=== PATIENT | male | born 1940 | race Hispanic/Latino ===

== ENCOUNTER 2017-10-10 16:33 | Observation (INO) | payer MEDICARE, OTHER ==
[~2017-10-10] VITALS: Ht 167.6 cm; Wt 135.2 kg
[~2017-10-10 16:33] MED LIST: ASPIR 8181 MG PO; CRESTOR10 MG PO; HYDROCHLOROTHIA25 MG PO; LISINOPRIL10 MG PO; METOPROLOL TART25 MG PO; POTASSIUM CHLO20 ME1 PO
--- OUTSIDE RECORDS SUMMARY | 2017-10-10 16:35 | XMS REPORT | Clinical Summary ---
Author Author [facility] Address Unknown Phone Unavailable Care Team Providers Care Plastics Fabrication Supervisor Name Role Phone Erick Bazzi MD PCP Allergies Not on File Current Medications Not on file Active Problems Problem Noted Date Malignant neoplasm of prostate 11/24/2016 Encounters Date Type Specialty Care Team Description 06/12/2017 Orders Only Radiation Oncology Asya Rader PA-C Malignant neoplasm of prostate (Primary Dx) 06/11/2017 [facility] Radiation Oncology David Bosch MD Encounter 04/27/2017 Hospital Radiation Oncology David Bosch MD Encounter 04/16/2017 Orders Only Radiation Oncology Asya Rader PA-C Malignant neoplasm of prostate (Primary Dx) 03/27/2017 [facility] Radiation Oncology David Bosch MD - Encounter 03/28/2017 02/24/2017 Hospital Radiation Oncology David Bosch MD Encounter 02/19/2017 [facility] Radiation Oncology David Bosch MD Encounter 12/29/2016 [facility] Radiology David Bosch MD Malignant neoplasm of Encounter prostate 12/29/2016 Hospital Radiology David Bosch MD Encounter 12/29/2016 Hospital Radiology David Bosch MD Malignant neoplasm of Encounter prostate 12/26/2016 Transcribe Access David Bosch MD Malignant neoplasm of Orders prostate (Primary Dx) 12/25/2016 [facility] Radiation Oncology David Bosch MD Encounter 12/25/2016 Orders Only Radiation Oncology Maru Dinero RN 12/19/2016 Telephone UrologMontana Banks MD after 10/09/2016 Social History Tobacco Use Types Packs/Day Years Used Date Never Assessed Sex Assigned at Date Recorded Not on file Last Filed Vital Signs Not on file Plan of Treatment Date Type Specialty Care Team Description 10/31/2017 Office Visit Gastroenterology Horace To MD [address] [address] Health Maintenance Due Date Last Done Comments ZOSTER VACCINE 2002 PNEUMOCOCCAL 2007 POLYSACCHARIDE VACCINE AGE 65 AND OVER PNEUMOCOCCAL-13 2007 INFLUENZA VACCINE 03/27/2017 Results * CBC with platelet and differential (03/01/2017 2:15 PM) Component Value Ref Range WBC 11.12 (H) 4.50 - 11.00 k/uL RBC 4.13 (L) 4.40 - 6.00 m/uL HGB 12.7 (L) 14.0 - 18.0 g/dL HCT 40.8 (L) 41.0 - 51.0 % MCV 98.8 82.0 - 100.0 fL MCH 30.8 27.0 - 34.0 pg MCHC 31.1 31.0 - 37.0 g/dL RDW - SD 48.0 37.0 - 55.0 fL MPV 9.0 8.8 - 13.2 fL Platelet count 195 150 - 400 k/uL Nucleated RBC 0.00 /100 WBC Neutrophils 73.9 (H) 39.0 - 69.0 % Lymphocytes 15.7 (L) 25.0 - 45.0 % Monocytes 7.3 0.0 - 10.0 % Eosinophils 2.4 0.0 - 5.0 % Basophils 0.3 0.0 - 1.0 % Immature granulocytes 0.4Comment: "Immature granulocytes" 0.0 - 1.0 % (promyelocytes, myelocytes, metamyelocytes) Specimen Performing Laboratory [facility] [place] DEPARTMENT OF PATHOLOGY AND GENOMIC MEDICINE [address] [place] [id number] * Prostate specific antigen (03/01/2017 2:15 PM) Component Value Ref Range PSA 3.1 0.0 - 4.0 ng/mL Comment: The ALBERT 8000 PSA immunoassay was used. Results obtained with different assay methods or kits should not be used interchangeably and may be different. Specimen Performing Laboratory Plasma specimen [facility] [place] DEPARTMENT OF PATHOLOGY AND GENOMIC MEDICINE [address] [place] [id number] * NM Bone Scan Whole Body (12/29/2016 1:39 PM) Specimen Performing Laboratory [address] [address] Narrative PROCEDURE: NM BONE SCAN WHOLE BODY INDICATION: MALIGNANT NEOPLASM OF PROSTATE Order diagnosis - Malignant neoplasm of prostate COMPARISON: No prior bone scans TECHNIQUE: Approximately three hours after the intravenous administration of 25 mCi of Tc-99m labeled MDP, routine whole body planar bone scanning was performed in the anterior and posterior projections. FINDINGS: Tracer uptake pattern throughout the spine is mildly heterogeneous most consistent with degenerative arthropathy. Additional degenerative uptake is noted in the joints of the upper and lower extremities. No suspicious osteoblastic foci are clearly identified. IMPRESSION: 1.No definite scintigraphic evidence of osteoblastic metastases. 2.Degenerative changes as described above. [facility] [id number] Procedure Note [facility], Radiology Results Incoming - 12/29/2016 3:45 PM CDT PROCEDURE: NM BONE SCAN WHOLE BODY INDICATION: MALIGNANT NEOPLASM OF PROSTATE Order diagnosis - Malignant neoplasm of prostate COMPARISON: No prior bone scans TECHNIQUE: Approximately three hours after the intravenous administration of 25 mCi of Tc-99m labeled MDP, routine whole body planar bone scanning was performed in the anterior and posterior projections. FINDINGS: Tracer uptake pattern throughout the spine is mildly heterogeneous most consistent with degenerative arthropathy. Additional degenerative uptake is noted in the joints of the upper and lower extremities. No suspicious osteoblastic foci are clearly identified. IMPRESSION: 1.No definite scintigraphic evidence of osteoblastic metastases. 2.Degenerative changes as described above. [facility] [id number] * CT Abdomen Pelvis Wo Contrast (12/29/2016 11:33 AM) Specimen Performing Laboratory [place] [id number] [place] [address] Narrative EXAMINATION:CT ABDOMEN PELVIS WO CONTRAST CLINICAL HISTORY:MALIGNANT NEOPLASM OF PROSTATE Order diagnosis - Malignant neoplasm of prostate TECHNIQUE: Multiple axial images of the abdomen and pelvis were obtained without intravenous administration of iodinated contrast. Sagittal and coronal computerized reformatted images were also obtained. The lack of intravenous contrast reduces the sensitivity of detecting solid organ disease.CT imaging was performed with iterative reconstruction technique and/or automated exposure control to reduce radiation dose. COMPARISON:None. FINDINGS: Abdomen: There is mild cardiomegaly and coronary artery calcification. Lung bases are unremarkable. The liver, pancreas, spleen, left adrenal gland are normal in appearance. A right adrenal mass is 2.2 cm. It is compatible with an adenoma. Patient is status post cholecystectomy. The appendix is not seen. The left kidney is unremarkable. Hypodensity emanating from the posterior right kidney is probably a cyst but is not optimally evaluated without contrast. Measures 3.7 x 3.3 cm. Pelvis: Prostatic calcifications are seen. Right inguinal hernia greater than left and tiny fat only are seen. No enlarged pelvic lymph node is identified. Small bilateral pelvic lymph nodes are seen. Prostate gland enlargement and calcification are noted. IMPRESSION: No definite evidence of metastasis. Small bilateral pelvic lymph nodes are normal by size criteria, but involvement of these nodes by tumor cannot be entirely excluded. No enlarged pelvic lymph node is seen.. Follow-up can be performed. [facility] [id number] Procedure Note [facility], Radiology Results Incoming - 12/29/2016 11:44 AM CDT EXAMINATION: CT ABDOMEN PELVIS WO CONTRAST CLINICAL HISTORY: MALIGNANT NEOPLASM OF PROSTATE Order diagnosis - Malignant neoplasm of prostate TECHNIQUE: Multiple axial images of the abdomen and pelvis were obtained without intravenous administration of iodinated contrast. Sagittal and coronal computerized reformatted images were also obtained. The lack of intravenous contrast reduces the sensitivity of detecting solid organ disease.CT imaging was performed with iterative reconstruction technique and/or automated exposure control to reduce radiation dose. COMPARISON: None. FINDINGS: Abdomen: There is mild cardiomegaly and coronary artery calcification. Lung bases are unremarkable. The liver, pancreas, spleen, left adrenal gland are normal in appearance. A right adrenal mass is 2.2 cm. It is compatible with an adenoma. Patient is status post cholecystectomy. The appendix is not seen. The left kidney is unremarkable. Hypodensity emanating from the posterior right kidney is probably a cyst but is not optimally evaluated without contrast. Measures 3.7 x 3.3 cm. Pelvis: Prostatic calcifications are seen. Right inguinal hernia greater than left and tiny fat only are seen. No enlarged pelvic lymph node is identified. Small bilateral pelvic lymph nodes are seen. Prostate gland enlargement and calcification are noted. IMPRESSION: No definite evidence of metastasis. Small bilateral pelvic lymph nodes are normal by size criteria, but involvement of these nodes by tumor cannot be entirely excluded. No enlarged pelvic lymph node is seen.. Follow-up can be performed. [facility] [id number] after 10/09/2016 Insurance Payer Benefit Subscriber ID Type Phone Address Plan / Group MEDICARE MEDICARE xxxxxxxxxx Medicare [place], [place] PART A AND B [employer] PPO xxxxxxxxxx PPO OPEN CHOICE
[2017-10-10] MEDS ORDERED: ASPIRIN 81 MG CHEW TAB PO ONE (16:45)
[2017-10-10] MEDS ORDERED: SODIUM CHLORIDE 0.9% 1000ML 1,000 ML ONE (17:24)
[2017-10-10 17:42] LABS: BASOPHILS % 0.3 % (0.0-1.0); EOSINOPHILS # (AUTO) 0.6 (0.0-0.4); EOSINOPHILS % 6.2 % (0.0-6.0); HEMATOCRIT 38.2 % (38.2-49.6); LYMPHOCYTES # (AUTO) 1.5 (1.0-3.2); LYMPHOCYTES % 14.9 % (18.0-39.1); MEAN CORPUSCULAR HEMOGLOBIN 30.7 pg (28-32); MEAN CORPUSCULAR HGB CONC 31.4 g/dL (31-35); MEAN CORPUSCULAR VOLUME 97.7 fL (81-99); MONOCYTES # (AUTO) 0.9 (0.2-0.8); MONOCYTES % 8.8 % (4.4-11.3); NEUTROPHILS # (AUTO) 7.1 (2.1-6.9); PLATELET COUNT 205 x10e3/uL (140-360); RED BLOOD COUNT 3.91 x10e6/uL (4.3-5.7); RED CELL DISTRIBUTION WIDTH 13.2 % (11.7-14.4)
[2017-10-10 17:46] LABS: INR 1.05; PROTHROMBIN TIME 12.9 seconds (11.9-14.5)
[2017-10-10 17:47] LABS: PARTIAL THROMBOPLASTIN TIME 27.5 seconds (23.8-35.5)
[2017-10-10 17:54] LABS: ALANINE AMINOTRANSFERASE 23 IU/L (0-55); ALBUMIN 3.4 g/dL (3.5-5.0); ALKALINE PHOSPHATASE 86 IU/L (40-150); ANION GAP 16.9 mmol/L (8-16); BLOOD UREA NITROGEN 37 mg/dL (7-26); BUN/CREATININE RATIO 22 (6-25); CALCIUM 8.5 mg/dL (8.4-10.2); CARBON DIOXIDE 22 mmol/L (22-29); CHLORIDE 109 mmol/L (98-107); CREATINE KINASE 143 IU/L (30-200); CREATININE, SERUM 1.65 mg/dL (0.72-1.25); EST GLOMERULAR FILTRATION RATE 41 ML/MIN (60-); GLUCOSE 121 mg/dL (74-118); POTASSIUM 4.9 mmol/L (3.5-5.1); SODIUM 143 mmol/L (136-145)
--- NOTE | 2017-10-10 18:24 | Diagnostic Imaging Report ---
PROCEDURE: A single AP view of the chest. COMPARISON: Chest radiograph 06/26/2016 INDICATIONS: CHEST PAINS, SOB FINDINGS: Lines/tubes: None. Lungs: The lungs are well inflated and clear. There is no evidence of pneumonia or pulmonary edema. Pleura: There is no pleural effusion or pneumothorax. Heart and mediastinum: The heart and the mediastinum are unremarkable. Bones: No acute bony abnormality. IMPRESSION: No acute cardiopulmonary disease. Dictated by: Lucas Bourgeois M.D. on 10/10/2017 at 18:24 Electronically approved by: Lucas Bourgeois M.D. on 10/10/2017 at 18:24
[2017-10-10] MEDS ORDERED: ONDANSETRON HCL INJ 2 MG/ML VIAL IV PRN (18:45)
[2017-10-10] MEDS ORDERED: SODIUM CHLORIDE FLUSH 10 ML SYR INJ PRN (18:45)
[2017-10-10] MEDS ORDERED: MORPHINE SULFATE 2 MG/ML SYR IV PRN (18:45)
[2017-10-10 18:51] LABS: BILIRUBIN,URINE NEGATIVE (NEGATIVE); CLARITY,URINE CLEAR (CLEAR); COLOR,URINE YELLOW (YELLOW); KETONES,URINE NEGATIVE (NEGATIVE); LEUKOCYTE ESTERASE ,URINE NEGATIVE (NEGATIVE); NITRITE,URINE NEGATIVE (NEGATIVE); PROTEIN,URINE DIPSTICK NEGATIVE (NEGATIVE); URINE UROBILINOGEN 0.2 mg/dL (0.2 - 1)
[2017-10-10 18:53] LABS: MUCUS,URINE FEW (RARE); RBC,URINE 0-5 /HPF (0-5); WBC,URINE (MAN) 0-5 /HPF (0-5)
--- OUTSIDE RECORDS SUMMARY | 2017-10-10 19:05 | XMS REPORT | Clinical Summary ---
Author Author [facility] Address Unknown Phone Unavailable Care Team Providers Care Instrument Worker Name Role Phone Erick Bazzi MD PCP Allergies Not on File Current Medications Not on file Active Problems Problem Noted Date Malignant neoplasm of prostate 11/24/2016 Encounters Date Type Specialty Care Team Description 06/12/2017 Orders Only Radiation Oncology Asya Rader PA-C Malignant neoplasm of prostate (Primary Dx) 06/11/2017 [facility] Radiation Oncology David Bosch MD Encounter 04/27/2017 Hospital Radiation Oncology David Bosch MD Encounter 04/16/2017 Orders Only Radiation Oncology Asya Rader PA-C Malignant neoplasm of prostate (Primary Dx) 03/27/2017 [facility] Radiation Oncology David Bosch MD - Encounter 03/28/2017 02/24/2017 Hospital Radiation Oncology David Bosch MD Encounter 02/19/2017 [facility] Radiation Oncology David Bosch MD Encounter 12/29/2016 [facility] Radiology David Bosch MD Malignant neoplasm of Encounter prostate 12/29/2016 Hospital Radiology David Bosch MD Encounter 12/29/2016 Hospital Radiology David Bosch MD Malignant neoplasm of Encounter prostate 12/26/2016 Transcribe Access David Bosch MD Malignant neoplasm of Orders prostate (Primary Dx) 12/25/2016 [facility] Radiation Oncology David Bosch MD Encounter 12/25/2016 Orders Only Radiation Oncology Maru Dinero RN 12/19/2016 Telephone UrologMontana Banks MD after 10/09/2016 Social History Tobacco Use Types Packs/Day Years Used Date Never Assessed Sex Assigned at Date Recorded Not on file Last Filed Vital Signs Not on file Plan of Treatment Date Type Specialty Care Team Description 10/31/2017 Office Visit Gastroenterology Horace To MD [address] [address] Health Maintenance Due Date Last [...] % (promyelocytes, myelocytes, metamyelocytes) Specimen Performing Laboratory [facility] DEPARTMENT OF PATHOLOGY AND GENOMIC MEDICINE [address] [place] [phone] * Prostate specific antigen (03/01/2017 2:15 PM) Component Value Ref Range PSA 3.1 0.0 - 4.0 ng/mL Comment: The ALBERT 8000 PSA immunoassay was used. Results obtained with different assay methods or kits should not be used interchangeably and may be different. Specimen Performing Laboratory Plasma specimen [facility] DEPARTMENT OF PATHOLOGY AND GENOMIC MEDICINE [address] [place] [id number] * NM Bone Scan Whole Body (12/29/2016 1:39 PM) Specimen Performing Laboratory [address] [address] Narrative PROCEDURE: NM BONE SCAN WHOLE BODY [...] osteoblastic metastases. 2.Degenerative changes as described above. [id number] Procedure Note [facility], Radiology Results Incoming - 12/29/2016 3:45 PM [...] osteoblastic metastases. 2.Degenerative changes as described above. [id number] * CT Abdomen Pelvis Wo Contrast (12/29/2016 11:33 AM) Specimen Performing Laboratory [place] [id number] [place] [address] Narrative EXAMINATION:CT ABDOMEN PELVIS WO CONTRAST CLINICAL [...] node is seen.. Follow-up can be performed. [id number] Procedure Note [facility], Radiology Results Incoming - 12/29/2016 11:44 AM [...] node is seen.. Follow-up can be performed. [facility]-[id number] after 10/09/2016 Insurance Payer Benefit Subscriber ID Type Phone Address Plan / Group MEDICARE MEDICARE xxxxxxxxxx Medicare [place], [place] PART A AND B [employer] PPO xxxxxxxxxx PPO OPEN CHOICE
--- OUTSIDE RECORDS SUMMARY | 2017-10-10 19:05 | XMS REPORT ---
Author [facility] Address Unknown Phone Unavailable Care Team Providers Care Financial Planning Advisor Name Role Phone FELICIANO LIU Unavailable Unavailable Problems This patient has no known problems. Allergies, Adverse Reactions, Alerts This patient has no known allergies or adverse reactions. Medications This patient has no known medications. Results Test Description Test Time Test Comments Text Results Atomic Results Result Comments CHEST SINGLE (PORTABLE) [place] [address] Patient Name: CHARLIE JEONG MR #: [id number] : 1940 Age/Sex: 77/M Req #: [id number] Adm Physician: Ordered by: CHRISTI SANCHEZ BREAD DISTRIBUTOR Report #: [id number] Location: ER Room/Bed: Procedure: [id number] DX/CHEST SINGLE (PORTABLE) Exam Date: 10/10/17 Exam Time: 1750 REPORT STATUS: Signed PROCEDURE: A single AP view of the chest. COMPARISON: Chest radiograph 06/26/2016 INDICATIONS: CHEST PAINS, SOB FINDINGS: Lines/tubes: None. Lungs: The lungs are well inflated and clear. There is no evidence of pneumonia or pulmonary edema. Pleura: There is no pleural effusion or pneumothorax. Heart and mediastinum: The heart and the mediastinum are unremarkable. Bones: No acute bony abnormality. IMPRESSION: No acute cardiopulmonary disease. Dictated by: Lucas Kahn M.D. on at 18:24 Electronically approved by: Lucas Kahn M.D. on 10/10 at 18:24 Dictated By: LUCAS KAHN MD 23 Transcribed By: SHALINI on 10/10/171823 COPY TO: CHRISTI SANCHEZ NP
[2017-10-10 20:19] VITALS: BP 128/60
[2017-10-10 20:30] VITALS: BP 117/65
[2017-10-10 23:42] VITALS: BP 117/65
[2017-10-11] VITALS: BP 90/46
[2017-10-11 04:00] VITALS: BP 109/50
[2017-10-11] MEDS ORDERED: VITAMIN B-121000 MCG PO (06:38)
[2017-10-11 07:16] LABS: CREATINE KINASE 101 IU/L (30-200)
[2017-10-11 07:45] VITALS: BP 109/50
[2017-10-11 07:57] VITALS: BP 108/50
[2017-10-11] MEDS ORDERED: CLOPIDOGREL BISULFATE 75 MG TAB PO ONE (12:10)
[2017-10-11 12:18] VITALS: BP 133/62
--- NOTE | 2017-10-11 13:48 | Consultation ---
DATE OF CONSULTATION: October 11, 2017 CARDIAC CONSULTATION REASON FOR CONSULTATION: Chest pain. HISTORY: A 77-year-old gentleman who is known with hypertension, morbid obesity, sleep apnea, and severe varicose veins. Patient is known also with coronary artery disease. He had a cardiac catheterization in 2014 by and treated medically. He is followed currently by Dr. Rivera. The patient is doing relatively well. He is known also with peripheral arterial vascular disease. Dr. Rivera told him he does have decreased pulses in his feet. Patient in his usual status of health. Yesterday, he started having retrosternal chest pain radiating to his left arm. He was alarmed by it. He came to the emergency room. Pain lasted for 15 to 30 minutes. Patient had nitroglycerin with partial relief initially and then the pain subsided. He is in hospital. He is happy. He is doing well. He denied having any pleuritic chest pain. There is no change in the degree of his swelling of the lower extremities and changes of the lower extremities. There is no prolonged travel. Patient does have some shortness of breath and chest pain on exertion. There is sleep apnea. Patient sleeps on CPAP. There is no orthopnea and no paroxysmal nocturnal dyspnea. REVIEW OF SYSTEMS CARDIAC: As per above. PULMONARY: No cough. No hemoptysis. GI: Patient since his radiation for his prostate cancer having changes in bowel habits. He does have some time diarrhea, but no melena. Four months ago, he had occult blood positive and he was supposed to have colonoscopy, but he did not do it. : Patient is having problem urination since his prostate radiation. LOWER EXTREMITIES: Severe varicose veins, chronic changes for many years, and skin discoloration in addition of possible claudications. MUSCULAR: Back pain and knee pain. NEUROLOGY: Decreased left eye vision secondary to retinal disease, but no localized weakness or deficit. SOCIAL HISTORY: He is . He is nonsmoker, [id number]. 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 HOME MEDICATIONS: Lisinopril 10 mg a day, Toprol XL 25 mg a day, Crestor 10 mg a day, aspirin 81 mg a day, vitamin B12, and potassium chloride 20 mEq a day. ALLERGIES: NONE. PAST MEDICAL HISTORY 1. Morbid obesity. 2. Obstructive sleep apnea. on CPAP. 3. Prostate cancer, status post radiation in February and March. 4. Cholecystectomy. 5. Umbilical hernia surgery. 6. Advanced varicose veins. 7. 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 FAMILY HISTORY: Father of CVA at age 62. Mother in her 80s with congestive heart failure. At least 1 or 2 brothers with coronary artery disease and bypass surgery. PHYSICAL EXAMINATION GENERAL: Morbidly obese gentleman. VITALS: Height of 5 feet 6 inches. Weight of 298 pounds. Blood pressure 100/50, heart rate of 70, and respiratory rate of 18. Afebrile. HEENT: Decreased vision in the left eye. NECK: No elevation of jugular venous pulsation. Short neck. CHEST: Decreased lung expansion. HEART: Morbid obesity with distant heart sounds. No additional murmur. No rub. ABDOMEN: Obese. Scar of previous umbilical hernia surgery. EXTREMITIES: Good femoral pulses. Both feet pulses are low. There are severe varicose veins, severe skin discoloration, and skin changes of the lower extremities. NEUROLOGIC: Besides the left eye vision, there are no localized deficits. LABORATORY DATA: BUN is elevated at 37, creatinine of 1.7, sodium of 143, and potassium of 4.9. White blood cell count of 10.3, hemoglobin 12, hematocrit 38%, and platelet of 205,000. Lipid profile showed triglycerides of 98, cholesterol 121, HDL of 40, and LDL of 61. IMAGING: Chest x-ray by report showed no major abnormalities. IMPRESSION AND PLAN 1. Coronary artery disease, treated medically in the past with typical angina. Acute coronary syndrome. 2. Hypertension. 3. Morbid obesity. 4. Sleep apnea. 5. Chronic renal insufficiency. 6. Anemia. 7. Stool occult positive history. 8. Severe advanced varicose veins with complication. 9. Decreased left eye vision. Case discussed and explained at length. Patient will be loaded with Plavix. Options of workup are discussed. Patient is to make a decision. Very lengthy discussion explaining his status and his condition. Option between invasive and noninvasive approach are discussed with preference for invasive approach because of his morbid obesity, his symptoms, and knowing coronary artery disease. Patient to make a decision. Case discussed at length with patient's brother and grandson, who is in his room. Discussed with Dr. Castellano. Long visit. Job#: [id number] VAS
[2017-10-11] MEDS ORDERED: SIMVASTATIN 20 MG TAB PO SCH (21:00)
[2017-10-11] MEDS ORDERED: SIMVASTATIN 40 MG TAB PO SCH (21:00)
[2017-10-12] MEDS ORDERED: CLOPIDOGREL BISULFATE 75 MG TAB PO SCH (09:00)
[2017-10-12] MEDS ORDERED: METOPROLOL TARTRATE 25 MG TAB PO SCH (09:00)
[2017-10-12] MEDS ORDERED: ASPIRIN 81 MG CHEW TAB PO SCH (09:00)
== END 2017-10-11 14:15 | disposition home or self-care (01) ==
LOC: ER 16:33 → ERHOLD 19:03 → MED/SURG 19:50
DX: I25.10 Atherosclerotic heart disease of native coronary artery without angina pectoris (principal); I10 Essential (primary) hypertension; Z85.46 Personal history of malignant neoplasm of prostate; E66.01 Morbid (severe) obesity due to excess calories; Z68.42 Body mass index [BMI] 45.0-49.9, adult; G47.33 Obstructive sleep apnea (adult) (pediatric); N18.9 Chronic kidney disease, unspecified; D64.9 Anemia, unspecified; I83.893 Varicose veins of bilateral lower extremities with other complications; H54.62 Unqualified visual loss, left eye, normal vision right eye
CPT/HCPCS: 36415 ×2; 71045; 80053; 80061; 81001; 82550 ×2; 82553 ×2; 83880; 84484 ×2; 85025; 85610; 85730; 87086; 87400; 93005; 93306; 99284; G0378 ×2; J7030

== ENCOUNTER 2018-04-03 06:09 | Emergency (ER) | payer MEDICARE, OTHER ==
[~2018-04-03] VITALS: Ht 167.6 cm; Wt 135.2 kg
[~2018-04-03 06:09] MED LIST changes: +VITAMIN B-121000 MCG PO
[2018-04-03] MEDS ORDERED: ONDANSETRON HCL INJ 2 MG/ML VIAL IV STA ×2 (06:41→08:51)
[2018-04-03] MEDS ORDERED: KETOROLAC TROMETHAMINE 30 MG/ML VIAL IV STA (06:41)
[2018-04-03] MEDS ORDERED: MORPHINE SULFATE 2 MG/ML SYR IV STA (06:44)
[2018-04-03 06:53] LABS: BASOPHILS % 0.2 % (0.0-1.0); EOSINOPHILS # (AUTO) 0.4 (0.0-0.4); EOSINOPHILS % 4.1 % (0.0-6.0); HEMOGLOBIN 12.4 g/dL (14.0-18.0); LYMPHOCYTES # (AUTO) 0.9 (1.0-3.2); LYMPHOCYTES % 10.4 % (18.0-39.1); MEAN CORPUSCULAR HGB CONC 32.6 g/dL (31-35); MEAN CORPUSCULAR VOLUME 91.8 fL (81-99); MONOCYTES # (AUTO) 0.9 (0.2-0.8); MONOCYTES % 9.7 % (4.4-11.3); NEUTROPHILS # (AUTO) 6.6 (2.1-6.9); NEUTROPHILS % 75.3 % (38.7-80.0); PLATELET COUNT 125 x10e3/uL (140-360); RED BLOOD COUNT 4.14 x10e6/uL (4.3-5.7); RED CELL DISTRIBUTION WIDTH 13.2 % (11.7-14.4)
[2018-04-03 06:56] LABS: CLARITY,URINE CLEAR (CLEAR); COLOR,URINE YELLOW (YELLOW)
[2018-04-03 06:57] LABS: BILIRUBIN,URINE NEGATIVE (NEGATIVE); KETONES,URINE NEGATIVE (NEGATIVE); LEUKOCYTE ESTERASE ,URINE NEGATIVE (NEGATIVE); NITRITE,URINE NEGATIVE (NEGATIVE); PROTEIN,URINE DIPSTICK NEGATIVE (NEGATIVE); URINE UROBILINOGEN 0.2 mg/dL (0.2 - 1)
[2018-04-03 07:07] LABS: ALBUMIN 3.3 g/dL (3.5-5.0); ANION GAP 13.9 mmol/L (8-16); CALCIUM 9.1 mg/dL (8.4-10.2); CREATININE, SERUM 1.58 mg/dL (0.72-1.25); POTASSIUM 3.9 mmol/L (3.5-5.1)
[2018-04-03 07:14] LABS: BACTERIA,URINE FEW /HPF; EPITHELIAL CELLS,URINE RARE /LPF; RBC,URINE 0-5 /HPF (0-5); WBC,URINE (MAN) 0-5 /HPF (0-5)
--- NOTE | 2018-04-03 07:29 | Diagnostic Imaging Report ---
PROCEDURE: CT ABDOMEN AND PELVIS WITHOUT CONTRAST TECHNIQUE: The abdomen and pelvis were scanned utilizing a multidetector helical scanner from the diaphragm to the lesser trochanter without IV Contrast per stone protocol. Coronal and sagittal multiplanar reformations were obtained. COMPARISON: CT Abdomen/Pelvis without contrast 08/27/16. INDICATIONS: LEFT FLANK PAIN FINDINGS: ABSENCE OF INTRAVENOUS CONTRAST DECREASES SENSITIVITY FOR DETECTION OF FOCAL LESIONS AND VASCULAR PATHOLOGY. LOWER THORAX: Coronary atherosclerosis. HEPATOBILIARY: No focal hepatic lesions. No biliary ductal dilatation. Status post cholecystectomy. SPLEEN: No splenomegaly. PANCREAS: No focal masses or ductal dilatation. ADRENALS: Unchanged 2 cm right adrenal nodule, measuring less than 10 HU consistent with adenoma. Left adrenal gland is unremarkable. KIDNEYS/URETERS: Mild left hydronephrosis and hydroureter with perinephric and periureteric stranding and a small amount of fluid. There is a punctate 2 mm left distal ureteral/UVJ stone. No evidence of solid mass lesions. Simple cyst in the right kidney. PELVIC ORGANS/BLADDER: Unremarkable. PERITONEUM / RETROPERITONEUM: No free air or drainable fluid collection. LYMPH NODES: No lymphadenopathy. VESSELS: Aortic atherosclerosis. GI TRACT: No distention or wall thickening. BONES AND SOFT TISSUES: No acute bony findings. IMPRESSION: A 2 mm left distal ureteral/UVJ stone with mild left hydronephrosis and hydroureter with surrounding inflammatory changes and small amount of free fluid. Dictated by: DEANNA SHAW M.D. on 04/03/2018 at 7:34 Electronically approved by: DEANNA SHAW M.D. on 04/03/2018 at 7:34
[2018-04-03] MEDS ORDERED: ULTRAM50 MG PO (08:13)
[2018-04-03] MEDS ORDERED: FLOMAX0.4 MG PO (08:32)
[2018-04-03] MEDS ORDERED: FENTANYL CITRATE/PF 100MCG/2 ML INJ IV ONE (09:00)
[2018-04-03 09:46] VITALS: BP 160/74
== END 2018-04-03 09:40 | disposition home or self-care (01) ==
LOC: ER 06:09
DX: R10.32 Left lower quadrant pain (principal); R11.2 Nausea with vomiting, unspecified; N13.2 Hydronephrosis with renal and ureteral calculous obstruction; I10 Essential (primary) hypertension; E78.5 Hyperlipidemia, unspecified
CPT/HCPCS: 36415; 74176; 80053; 81001; 85025; 99284; J2270; J2405

== ENCOUNTER 2018-05-22 14:56 | Emergency (ER) | payer MEDICARE, OTHER ==
[~2018-05-22] VITALS: Ht 167.6 cm; Wt 135.2 kg
[~2018-05-22 14:56] MED LIST changes: +FLOMAX0.4 MG PO; +ULTRAM50 MG PO
[2018-05-22] MEDS ORDERED: SODIUM CHLORIDE 0.9% 1000ML 1,000 ML IV STA (16:07)
[2018-05-22] MEDS ORDERED: KETOROLAC TROMETHAMINE 30 MG/ML VIAL IM STA (16:07)
[2018-05-22 16:53] LABS: BASOPHILS % 0.2 % (0.0-1.0); EOSINOPHILS # (AUTO) 0.5 (0.0-0.4); EOSINOPHILS % 6.1 % (0.0-6.0); HEMOGLOBIN 12.3 g/dL (14.0-18.0); LYMPHOCYTES # (AUTO) 1.2 (1.0-3.2); LYMPHOCYTES % 14.9 % (18.0-39.1); MEAN CORPUSCULAR HEMOGLOBIN 30.4 pg (28-32); MEAN CORPUSCULAR HGB CONC 32.4 g/dL (31-35); MEAN CORPUSCULAR VOLUME 94.1 fL (81-99); MONOCYTES # (AUTO) 0.9 (0.2-0.8); MONOCYTES % 10.9 % (4.4-11.3); NEUTROPHILS # (AUTO) 5.5 (2.1-6.9); NEUTROPHILS % 67.7 % (38.7-80.0); PLATELET COUNT 145 x10e3/uL (140-360); RED BLOOD COUNT 4.04 x10e6/uL (4.3-5.7); RED CELL DISTRIBUTION WIDTH 13.2 % (11.7-14.4)
--- NOTE | 2018-05-22 16:55 | Diagnostic Imaging Report ---
EXAM: CT of the abdomen and pelvis WITHOUT contrast HISTORY: Stone, flank pain, right COMPARISON: CT of the abdomen and pelvis August 27, 2016 TECHNIQUE: The abdomen and pelvis were scanned utilizing a multidetector helical scanner. Coronal and sagittal reformats are available. PROTOCOL: Stone protocol IV CONTRAST: None, which limits sensitivity and specificity of evaluation of the soft tissues and vascular structures. ORAL CONTRAST: None, which limits sensitivity and specificity of evaluation of the bowel. RADIATION DOSE: Total DLP: 795.53 mGy*cm Estimated effective dose: (DLP x 0.015 x size factor) COMPLICATIONS: None FINDINGS: LOWER THORAX: No consolidations LIVER: No discrete abnormality. BILIARY: Metallic clips in the right upper quadrant of the abdomen are compatible with prior cholecystectomy. SPLEEN: No masses PANCREAS: No masses. Mild diffuse parenchymal atrophy. ADRENALS: Stable 2 cm right adrenal glands round mass measuring less than 10 Hounsfield units, remains consistent with a lipid rich adenoma. The left adrenal gland is normal. KIDNEYS: * A punctate calcific density near the inferior pole of the right kidney. * A 4 mm calcific density within the proximal right ureter (axial image 91). * A 5 mm calcific density within the distal right ureter (axial image 135), diffuse fat stranding about the mid to distal right ureter. * Minimal right hydronephrosis and prominent perinephric fat stranding. GI TRACT: No distention, wall thickening or evidence of obstruction. The colon and small bowel are diffusely decompressed, which partially limits evaluation. A nonspecific oval radiopaque density within the stomach. VESSELS: Scattered atherosclerotic vascular calcifications, including the coronary arteries. PERITONEUM/RETROPERITONEUM: No free air or fluid LYMPH NODES: No lymphadenopathy PELVIS: The urinary bladder is decompressed, which limits evaluation. SOFT TISSUES: Unremarkable BONES: No aggressive osseous lesions. Moderate degenerative changes of the pubic symphysis. IMPRESSION: 1. A 5 mm stone within the distal right ureter and a 4 mm stone within the proximal right ureter with associated minimal hydronephrosis. 2. Punctate stone near the inferior pole of the right kidney. 3. Stable right adrenal lipid rich adenoma. 4. Coronary atherosclerosis. Signed by: Dr. Vidal Duran D.O., M.M.M. on 05/22/2018 4:52 PM
[2018-05-22 16:56] LABS: CLARITY,URINE SL CLOUDY (CLEAR); COLOR,URINE YELLOW (YELLOW)
[2018-05-22 16:57] LABS: BILIRUBIN,URINE 1+ (NEGATIVE); KETONES,URINE NEGATIVE (NEGATIVE); LEUKOCYTE ESTERASE ,URINE TRACE (NEGATIVE); NITRITE,URINE NEGATIVE (NEGATIVE); PROTEIN,URINE DIPSTICK 1+ (NEGATIVE); URINE UROBILINOGEN 0.2 mg/dL (0.2 - 1)
[2018-05-22 17:10] LABS: BACTERIA,URINE MANY /HPF; RBC,URINE 21-50 /HPF (0-5)
[2018-05-22 17:14] LABS: ANION GAP 14.1 mmol/L (8-16); CALCIUM 9.8 mg/dL (8.4-10.2); CREATININE, SERUM 1.45 mg/dL (0.72-1.25); POTASSIUM 4.1 mmol/L (3.5-5.1)
== END 2018-05-22 19:10 | disposition home or self-care (01) ==
LOC: ER 14:56
DX: R10.30 Lower abdominal pain, unspecified (principal); R31.9 Hematuria, unspecified; R11.0 Nausea; N20.0 Calculus of kidney; N13.30 Unspecified hydronephrosis; R19.7 Diarrhea, unspecified
CPT/HCPCS: 36415; 74176; 80048; 81001; 85025; 99284; J1885; J7030

== ENCOUNTER 2018-11-24 09:40 | Observation (INO) | payer MEDICARE, OTHER ==
[~2018-11-24] VITALS: Ht 167.6 cm; Wt 135.2 kg
--- OUTSIDE RECORDS SUMMARY | 2018-11-24 09:44 | XMS REPORT | Clinical Summary ---
Author Author [facility] Organization [facility] Address Unknown Phone Unavailable Care Team Providers Care Hired Hand Name Role Phone Jr Bazzi MD PCP Allergies Not on File Medications End Date Status Medication Sig Dispensed Refills Start Date Active LISINOPRIL-HCTZ 20-12.5 Take 1 tablet 0 MG COMBO DOSE by mouth daily. Active potassium chloride in daily. 0 water 20 mEq/100 mL IVPB Active tamsulosin (FLOMAX) 0.4 daily. 0 mg capsule 7 Active clopidogrel (PLAVIX) 75 0 mg tablet 8 Active aspirin 81 mg chewable daily. 0 tablet Active naproxen (NAPROSYN) 500 0 MG tablet 8 Active rosuvastatin (CRESTOR) 5 0 MG tablet 8 Active traMADol (ULTRAM) 50 mg 0 tablet 8 Active metoprolol tartrate 0 (LOPRESSOR) 25 mg tablet 8 Active desonide (DESOWEN) 0.05 % as needed. 0 lotion Active cyanocobalamin (VITAMIN daily. 0 B-12) 1000 MCG tablet Active garlic 1 mg capsule daily. 0 07/01/2018 Discontinued metoprolol succinate XL daily. 0 (TOPROL-XL) 25 mg 24 hr tablet 07/01/2018 Discontinued rosuvastatin (CRESTOR) 10 Take 10 mg by 0 MG tablet mouth. Active Problems Problem Noted Date Hypertension 07/01/2018 Obstructive sleep apnea syndrome 07/01/2018 Overview: Overview: on CPAP Malignant neoplasm of prostate 11/24/2016 Cancer Staging: Clinical stage from 12/25/2016: Stage IIB (T2b(7), N0, M0, PSA: Less than 10, Tierney 8-10) - Signed by Asya Rader PA-C on 07/01/2018 Heart disease 08/27/2014 Overview: Overview: History of chest pain, stress test normal. cardiac catheterization: two stenotic vessels (very distal), diffcult to stent Hypercholesterolemia 08/27/2014 Encounters Care Team Description Date Type Specialty David Bosch MD 08/07/2018 Hospital Radiation Oncology Encounter Asya Rader PA-C Malignant neoplasm of prostate (HCC) (Primary Dx) 07/01/2018 Orders Only Radiation Oncology David Bosch MD 12/31/2017 Hospital Radiation Oncology Encounter after 11/23/2017 Social History Date Tobacco Use Types Packs/Day Years Used Never Assessed Sex Assigned at Date Recorded Not on file Industry Job Start Date Occupation Not on file Not on file Not on file Travel End Travel History Travel Start No recent travel history available. Last Filed Vital Signs Not on file Plan of Treatment Health Maintenance Due Date Last Done Comments SHINGLES VACCINES (#1) 02/26/1992 65+ PNEUMOCOCCAL VACCINE 2007 (1 of 2 - PCV13) PNEUMOCOCCAL 2007 POLYSACCHARIDE VACCINE AGE 65 AND OVER INFLUENZA VACCINE 03/27/2018 Results Not on fileafter 11/23/2017 Insurance Payer Benefit Subscriber ID Type Phone Address Plan / Group MEDICARE MEDICARE xxxxxxxxxx Medicare [place], [place] PART A AND B AETNA AETNA PPO xxxxxxxxxx PPO OPEN CHOICE Advance Directives Patient has advance care planning documents on file. For more information, fanny krause contact: Levy Egan [address] [place] [address]
--- NOTE | 2018-11-24 09:56 | NUR ---
DR. GLEZ IN TRIAGE ASSESSING PT
[2018-11-24] MEDS ORDERED: POTASSIUM CHLO10 ME1 PO (10:03)
[2018-11-24] MEDS ORDERED: ISOSORBIDE MONO30 MG PO (10:03)
[2018-11-24 10:44] LABS: BASOPHILS % 0.5 % (0.0-1.0); EOSINOPHILS # (AUTO) 0.5 (0.0-0.4); HEMATOCRIT 34.7 % (38.2-49.6); LYMPHOCYTES % 15.5 % (18.0-39.1); MEAN CORPUSCULAR HEMOGLOBIN 30.9 pg (28-32); MEAN CORPUSCULAR HGB CONC 31.7 g/dL (31-35); MEAN CORPUSCULAR VOLUME 97.5 fL (81-99); MONOCYTES # (AUTO) 0.7 (0.2-0.8); MONOCYTES % 10.7 % (4.4-11.3); NEUTROPHILS # (AUTO) 4.1 (2.1-6.9); NEUTROPHILS % 64.7 % (38.7-80.0); PLATELET COUNT 150 x10e3/uL (140-360); RED BLOOD COUNT 3.56 x10e6/uL (4.3-5.7)
--- NOTE | 2018-11-24 11:06 | NUR ---
Bedside rounds completed with Kaila PABLO. Pt is not in acute distress at this time. Pt was updated by Dr. Melissa regarding admission to the hospital. Pt expressed his understanding.
[2018-11-24 11:13] LABS: ALANINE AMINOTRANSFERASE 19 IU/L (0-55); ALBUMIN 3.1 g/dL (3.5-5.0); ALBUMIN/GLOBULIN RATIO 0.9 (0.8-2.0); ALKALINE PHOSPHATASE 86 IU/L (40-150); ANION GAP 10.2 mmol/L (8-16); BLOOD UREA NITROGEN 21 mg/dL (7-26); BUN/CREATININE RATIO 18 (6-25); CALCIUM 9.1 mg/dL (8.4-10.2); CARBON DIOXIDE 26 mmol/L (22-29); CHLORIDE 109 mmol/L (98-107); CREATINE KINASE 176 IU/L (30-200); CREATININE, SERUM 1.14 mg/dL (0.72-1.25); EST GLOMERULAR FILTRATION RATE > 60 ML/MIN (60-); GLUCOSE 121 mg/dL (74-118); MAGNESIUM 1.9 MG/DL (1.3-2.1); POTASSIUM 4.2 mmol/L (3.5-5.1); SODIUM 141 mmol/L (136-145)
[2018-11-24] MEDS ORDERED: NITROGLYCERIN 0.4 MG SUBL SL PRN (11:15)
[2018-11-24] MEDS ORDERED: MORPHINE SULFATE INJ 4 MG/ML INJ 1ML IV PRN (11:15)
[2018-11-24] MEDS ORDERED: ONDANSETRON HCL INJ 2MG/ML 2ML 2 MG/ML VIAL IV PRN (11:15)
[2018-11-24] MEDS ORDERED: DEXTROSE 50% SYRINGE 50 ML IV PRN (11:15)
[2018-11-24 11:18] LABS: CLARITY,URINE HAZY (CLEAR); COLOR,URINE YELLOW (YELLOW); LEUKOCYTE ESTERASE ,URINE NEGATIVE (NEGATIVE); NITRITE,URINE NEGATIVE (NEGATIVE); PROTEIN,URINE DIPSTICK NEGATIVE (NEGATIVE)
[2018-11-24 11:19] LABS: BILIRUBIN,URINE NEGATIVE (NEGATIVE); INR 0.92; KETONES,URINE NEGATIVE (NEGATIVE); PROTHROMBIN TIME 12.9 seconds (11.9-14.5); URINE UROBILINOGEN 0.2 mg/dL (0.2 - 1)
[2018-11-24 11:21] LABS: PARTIAL THROMBOPLASTIN TIME 26.9 seconds (23.8-35.5)
[2018-11-24 11:28] LABS: BACTERIA,URINE FEW /HPF; EPITHELIAL CELLS,URINE FEW /LPF; RBC,URINE 0-5 /HPF (0-5); WBC,URINE (MAN) 0-5 /HPF (0-5)
[2018-11-24] MEDS: INSULIN LISPRO 100 UNIT/1 ML 3ML VIAL SQ SCH ×2 (11:30→16:30)
--- OUTSIDE RECORDS SUMMARY | 2018-11-24 11:32 | XMS REPORT | Clinical Summary ---
Author Author [facility] Address Unknown Phone Unavailable Care Team Providers Care Rubber Liner Name Role Phone Jr Bazzi MD PCP [...] Plan / Group MEDICARE MEDICARE xxxxxxxxxx Medicare [place], [place] PART A AND B AETNA AETNA PPO xxxxxxxxxx PPO OPEN CHOICE Advance Directives Patient has advance care planning documents on file. For more information, fanny krause contact: Levy Egan [address] [place] [address]
--- NOTE | 2018-11-24 11:36 | Diagnostic Imaging Report ---
Examination: Single AP view of the chest. COMPARISON: None. INDICATION: Chest pain DISCUSSION: Lines/tubes: None. Lungs: The lungs are well inflated and clear. No pneumonia or pulmonary edema. Pleura: No pleural effusion or pneumothorax. Heart and mediastinum: The heart and the mediastinum are unremarkable. Bones and soft tissues: No acute bony abnormalities. IMPRESSION: 1. No acute cardiopulmonary abnormalities. Signed by: Dr. Srinivasan Randhawa M.D. on 11/24/2018 11:33 AM
[2018-11-24 13:30] VITALS: BP 133/65
[2018-11-24 14:08] VITALS: BP 133/65
[2018-11-24 15:23] VITALS: BP 145/67
[2018-11-24 18:12] LABS: CREATINE KINASE MB 1.7 ng/mL (0-5.0)
--- NOTE | 2018-11-24 18:46 | NUR ---
Patient discharged home, Lab Troponin notified to Dr Mae , he said patient can go home with current home medications, discharge order recvd from Dr Hansel Castellano, IV canula removed with tip intact, no ss of infiltartion, not in any distress or pain, transported via [facility] to [facility]
--- NOTE | 2018-11-24 20:28 | Consultation ---
DATE OF CONSULTATION: Cardiology Consultation REASON FOR CONSULTATION: Chest pain. HISTORY OF PRESENT ILLNESS: This is a 78-year-old man with a history of obesity, benign prostatic hypertrophy, hyperlipidemia, hypertension, nonobstructive coronary artery disease per patient's history, who presented to the emergency department with atypical chest discomfort. The patient states that he sees [facility] and previous cardiac workup has been unremarkable. He states that he has small vessel coronary artery disease, which is not amenable to stenting and he was placed on antianginal medications. He ran out of his Ranexa and on his first dose of taking isosorbide, develops a vague left upper chest discomfort, mild intensity, no radiation, occurred at rest, associated with some anxiety and some shortness of breath. The patient was evaluated here last year and his echocardiogram showed normal left ventricular function and he ruled out for acute myocardial infarction. He is currently completely asymptomatic. Denies any current chest pain, shortness of breath, palpitations, PND, orthopnea, or syncopal events. PAST MEDICAL HISTORY: As stated above. PAST SURGICAL HISTORY: Cardiac catheterization. PAST FAMILY HISTORY: No premature coronary artery disease or sudden cardiac . SOCIAL HISTORY: No illicit drug use, alcohol, or tobacco use. ALLERGIES: NO KNOWN DRUG ALLERGIES. MEDICATIONS: See medication reconciliation form. PHYSICAL EXAMINATION: VITAL SIGNS: Temperature is 98.4, heart rate is 56, respirations are 19, blood pressure is 133/65, and oxygen saturation 96% on room air. GENERAL: He is a well-appearing obese male seated at bedside. HEAD: Normocephalic and atraumatic. EYES: Extraocular muscles are intact. Conjunctiva clear. NECK: No JVD. No bruits. CARDIOVASCULAR: Regular rate and rhythm. Normal S1, S2. LUNGS: Clear to auscultation. ABDOMEN: Soft, obese, and nontender. EXTREMITIES: No edema. VASCULAR: 2+ pulses. SKIN: Warm, dry, and intact. NEUROLOGIC: No focal deficits noted. LABORATORY DATA: Reviewed. Troponin less than 0.001. BNP is normal at 24, creatinine 1.14. A 12-lead electrocardiogram showed normal sinus rhythm. Chest x-ray shows no acute cardiopulmonary abnormalities. IMPRESSION: 1. Precordial pain. 2. Anxiety. 3. Chronic angina. 4. Obesity. 5. Hypertension. 6. Hyperlipidemia. RECOMMENDATIONS: Please check one additional set of cardiac enzymes 6 hours from the previous troponin level. If this is within normal limits, the patient may be discharged from a cardiovascular standpoint. He has recent Cardiology followup and recent testing was within normal limits. Continue current cardiovascular medications. No further testing with stress test or echo is needed at this point in time. DO YOLY Valderrama/MODL /[id number]
[2018-11-25] MEDS ORDERED: ASPIRIN 81 MG ENTERIC COATED PO SCH (09:00)
== END 2018-11-24 19:05 | disposition home or self-care (01) ==
LOC: ER 09:40 → ERHOLD 11:03 → IMCU 12:39
PROVIDERS: ADMIT Internal Medicine; ATTEND Internal Medicine
DX: I25.119 Atherosclerotic heart disease of native coronary artery with unspecified angina pectoris (principal); R07.2 Precordial pain; Z82.49 Family history of ischemic heart disease and other diseases of the circulatory system; Z82.3 Family history of stroke; I10 Essential (primary) hypertension; E78.5 Hyperlipidemia, unspecified; Z85.46 Personal history of malignant neoplasm of prostate; N40.0 Benign prostatic hyperplasia without lower urinary tract symptoms; Z87.442 Personal history of urinary calculi; E11.51 Type 2 diabetes mellitus with diabetic peripheral angiopathy without gangrene; E66.01 Morbid (severe) obesity due to excess calories; Z68.42 Body mass index [BMI] 45.0-49.9, adult; F41.9 Anxiety disorder, unspecified; Z79.82 Long term (current) use of aspirin
CPT/HCPCS: 36415; 71045; 80053; 81001; 82550; 82553; 83735; 83880; 84484; 85025; 85610; 85730; 93005; 99284; G0378

== ENCOUNTER 2019-06-25 13:50 | Outpatient (RCR) | payer MEDICARE, OTHER ==
[~2019-06-25 13:50] MED LIST changes: +ISOSORBIDE MONO30 MG PO; +POTASSIUM CHLO10 ME1 PO
== END 2019-06-26 ==
LOC: PT 13:50
PROVIDERS: ATTEND Internal Medicine
DX: I11.0 Hypertensive heart disease with heart failure (principal); M17.0 Bilateral primary osteoarthritis of knee; M62.81 Muscle weakness (generalized)

== ENCOUNTER 2019-07-25 10:42 | Outpatient (RCR) | payer MEDICARE, OTHER | END 2019-07-26 | LOC: PT 10:42 | PROVIDERS: ATTEND Internal Medicine | DX: M17.0 Bilateral primary osteoarthritis of knee (principal); M62.81 Muscle weakness (generalized); I50.32 Chronic diastolic (congestive) heart failure; R11.0 Nausea | CPT/HCPCS: 97139 ==

== ENCOUNTER 2020-01-22 06:35 | Emergency (ER) | payer MEDICARE, OTHER ==
[~2020-01-22] VITALS: Ht 167.6 cm; Wt 135.6 kg
--- OUTSIDE RECORDS SUMMARY | 2020-01-22 06:38 | XMS REPORT ---
Author Author [facility] t Organization [facility] Address [facility] [place] [phone] Phone Unavailable Care Team Providers Care Cad Drafter Name Role Phone MICHELLE SMITH MD PCP MICHELLE SMITH Attphys Unavailable Taz RAND Attphys Unavailable Cece BARNARD Attphys Unavailable Stephen Rivera Attphys Myke LIU Attphys Unavailable MICHELLE SMITH Admphys Unavailable Payers Payer Name Policy Type Policy Number Effective Date Expiration Date Hansel Xiong Medicare Supplement Plan [id number] 2015 00:00 :00 [facility] Medicare A & B [id number] 2007 00:00:00 [facility] Problems Condition Name Condition Details Condition Category Status Onset Date Resolution Date Last Treatment Date Treating Clinician Comments Source Hypertension Hypertension Disease Active 2018-07-01 00:00:00 Levy Egan Obstructive sleep apnea syndrome Obstructive sleep apnea syndrom e Disease Active 2018-07-01 00:00:00 Overview: Overvi ew: on CPAP Levy Egan CCL LHC POSSIBLE CCL LHC POSSIBLE Active 11/21/2017 [facility] Diagnosis Active 2017-11-21 00:00:00 2017-12-11 1 1:26:00 [facility] Malignant neoplasm of prostate Malignant neoplasm of prostate Disea se Active 2016-11-24 00:00:00 Lockett Jignesh Heart disease Heart disease Disease Active 2014-08-27 00:00:00 Overview: Overview: History of chest pain, stress test normal. cardiac catheterization: two stenotic vessels (very distal), diffcult to stent Levy Egan Hypercholesterolemia Hypercholesterolemia Disease Active 00:00:00 Levy Egan Chest pain Chest pain Problem Active [facility] Coronary arteriosclerosis (disorder) Coronary arteriosclerosis (disorder) Resolved Problem 03/15/2018 [facility] Problem Resolved 2018-03-15 01:53:40 [facility] Dyspnea (finding) Dysp shahzad (finding) Resolved Problem 03/15/2018 [facility] Problem Resolved 2018-03-15 0 1:53:40 [facility] Hyperlipidemia (disorder) Hype rlipidemia (disorder) Resolved Problem 03/15/2018 [facility] Problem Resolved 2018-03-15 01:53:40 [facility] Morbid obesity (disorder) Morb id obesity (disorder) Resolved Problem 03/15/2018 [facility] Problem Resolved 2018-03-15 01:53:40 [facility] Neoplasm of prostate (disorder) Neoplasm of prostate (disorder) Resolved Problem 03/15/2018 [facility] Problem Res olved 2018-03-15 01:53:40 [facility] Peripheral vascular disease (disorder) Peripheral vascular disease (disorder) Resolved Problem 03/15/2018 [facility] Problem Resolved 2018-03-15 01:53:40 [facility] Sleep apnea (finding) Slee p apnea (finding) Resolved Problem 03/15/2018 [facility] Problem Resolved 2018-03-15 01:53:40 [facility] 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, with stage 1 through stage 4 chronic kidney disease, or unspecified chronic kidney disease Hypertensive heart and chronic kidney disease without heart failure, with stage 1 through stage 4 chronic kidney disease, or unspecified chronic kidney disease 03/15/2018 [facility] Problem 2018-03-15 01:53:40 [facility] 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, 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, bilateral legs 03/15/2018 [facility] 2018-03-15 01:53:40 [facility] Malignant neoplasm of prostate Malignant neoplasm of prostate 03/15/2018 [facility] Problem 2018-03-15 01:53:40 [facility] Morbid (severe) obesity due to excess calories Morbid (severe) obesity due to excess calories 03/15/2018 [facility] 2018-03-15 01:53:40 [facility] Hyperlipidemia, unspecified Hy perlipidemia, unspecified 03/15/2018 [facility] Problem 2018-03-15 01 :53:40 [facility] 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, bilateral Chronic embolism and thrombosis of unspecified deep veins of proximal lower extremity, bilateral 03/15/2018 [facility] Problem 2018-03-15 01:53:40 [facility] medical terminologist (current) use of antithrombotics/antiplatele ts medical terminologist (current) use of antithrombotics/antiplatelets 03/15/2018 [facility] Problem 2018-03-15 01:53:40 [facility] medical terminologist (current) use of aspirin [facility] (current) use of aspirin 03/15/2018 [facility] Problem 2018-03-15 01:53:40 [facility] Obstructive sleep apnea (adult) (pediatric) Obstructive sleep apnea (adult) (pediatric) 03/15/2018 [facility] Problem 2018-03-15 01:53:40 [facility] Chronic kidney disease, stage 1 Chronic kidney disease, stage 1 03/15/2018 [facility] Problem 2018-03-15 01:53:40 [facility] RT LEG RT L EG Active [facility] [place] Diagnosis Act valeriy 2014-11-24 07:47:00 [facility] [place]fo 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 Social History Social Habit Start Date Stop Date Quantity Comments Source Sex Assigned At Eligio meeks Jignesh Smoking Status Start Date Stop Date Source Social History [facility] Medications Ordered Medication Name Filled Medication Name Start Date Stop Da te Current Medication? Ordering Clinician Indication Dosage Frequency Signature (SIG) Comments Components Source desonide (DESOWEN) 0.05 % lotion 2018-07-01 09:16:27 Yes as needed. Levy Egan cyanocobalamin (VITAMIN B-12) 1000 MCG tablet 2018-07-01 09:16:2 7 Yes daily. Levy serrano garlic 1 mg capsule 2018-07-01 09:16:27 Yes daily. Levy Egan aspirin 81 mg chewable tablet 2018-07-01 09:16:26 Yes daily. Levy Egan potassium chloride in water 20 mEq/100 mL IVPB 2018-07-01 09:11: 43 Yes daily. Levy hubbard LISINOPRIL-HCTZ 20-12.5 MG COMBO DOSE 2018-07-01 09:11:42 Y es 1{tbl} Take 1 tablet by mouth daily. Levy Ramirez thcamryn naproxen (NAPROSYN) 500 MG tablet 2018-05-23 00:00:00 Yes Levy Egan traMADol (ULTRAM) 50 mg tablet 2018-05-23 00:00:00 Yes Levy Egan rosuvastatin (CRESTOR) 5 MG tablet 2018-04-30 00:00:00 Yes Levy Egan clopidogrel (PLAVIX) 75 mg tablet 2018-04-15 00:00:00 Yes Levy Egan Tamsulosin Hcl (Flomax*) 0.4 Mg Cap Tamsulosin Hcl (Flomax*) 0.4 Mg Cap 2018-04-03 00:00:00 Yes Carlotta Galvez4 Daily [facility] Tramadol Hcl (Ultram) 50 Mg Tablet, 50 Mg Oral Tramado l Hcl (Ultram) 50 Mg Tablet, 50 Mg Oral 2018-04-03 00:00:00 2018-11-24 00:00:00 No Ambica S andhir Do 50 Every 6 Hours as needed for Pain [facility] metoprolol tartrate (LOPRESSOR) 25 mg tablet 2018-03-25 00:00:00 Yes Levy serrano Sodium Chloride 0.9% (Bolus) IV 2017-12-06 13:00:00 No 250 mL, 250 ml/hr, Infuse Over: 1 hr, Route: IV, 250, Drug form: INJ, ONCALL, Priority: Routine, kg, Start date: 12/06/17 8:00:00 CDT, Duration: 1 doses or times, Stop date: 12/06/17 17:00:00 CDT [facility] Hydrochlorothiazide 25 MG / Lisinopril 20 MG Oral Tablet 2017-12-06 12:45:00 Yes 1 tab, PO, Daily, # 90 tab, 1 Re fill(s) [facility] Rosuvastatin calcium 5 MG Oral Tablet [Crestor] 2017-12-06 12:45 :00 Yes 5 mg = 1 tab, PO, Bedtime, # 90 tab, 1 Refill(s) [facility] Aspirin 81 MG Chewable Tablet 2017-12-06 12:45:00 Yes 81 mg = 1 tab, PO, Daily, tab, 0 Refill(s) [facility] clopidogrel 75 MG Oral Tablet [Plavix] 2017-12-06 12:45:00 Yes 75 mg = 1 tab, PO, Daily, # 90 tab, 3 Refill(s) [facility] Nitroglycerin 0.4 MG Sublingual Tablet 2017-12-06 12:45:00 Yes 0.4 mg = 1 tab, SL, Q5Min, PRN Chest pain, Give up to 3 doses. Call 911 if pain persists., # 100 tab, 0 Refill(s) [facility] metoprolol tartrate 25 mg oral tablet 2017-12-06 12:45:00 Y es 25 mg = 1 tab, PO, BID, # 60 tab, 0 Refill(s) [facility] Sodium Chloride 0.9% IV 750 mL 2017-12-06 12:13:00 No 750 mL, Rate: 75 ml/hr, Infuse over: 10 hr, Route: IV, Total Volume: 750, Start date: 12/06/17 7:13:00 CDT, Duration: 24 hr, Stop date: 12/07/17 7:12:00 CDT [facility] tamsulosin (FLOMAX) 0.4 mg capsule 2016-09-13 00:00:00 Yes daily. Levy Egan Aspirin (Aspir 81) 81 Mg Tablet. Aspirin (Aspir 81) 81 Mg Tablet. Yes 81 Daily [facility] Isosorbide Mononitrate (Isosorbide Mononitrate Er) 30 Mg Tab.er.24h Isosorbide Mononitrate (Isosorbide Mononitrate Er) 30 Mg Tab.er.24h Yes 30 Daily [facility] Metoprolol Tartrate 25 Mg Tablet Metoprolol Tartrate 25 Mg Tablet Yes 25 Daily [facility] Potassium Chloride 10 Meq Tab.er.prt Potassium Chloride 10 Meq Tab. er.prt Yes [facility] Rosuvastatin Calcium (Crestor) 10 Mg Tab Rosuvastatin Calcium (Crestor) 10 Mg Tab Yes 10 Daily [facility] Cyanocobalamin (Vitamin B-12) 1,000 Mcg Tab, 500 Mg Or al Cyanocobalamin (Vitamin B-12) 1,000 Mcg Tab, 500 Mg Oral 2018-11-24 00:00:00 No 50 0 Daily [facility] Lisinopril 10 Mg Tablet, 12.5 Mg Oral Lisinopril 10 Mg Tablet, 1 2.5 Mg Oral 2017-10-11 00:00:00 No 12.5 Daily [facility] Potassium Chloride 20 Meq Tab.er.prt, 20 Meq Oral Pota ssium Chloride 20 Meq Tab.er.prt, 20 Meq Oral 2017-10-11 00:00:00 No 20 Daily [facility] Hydrochlorothiazide 25 Mg Tablet, 25 Mg Oral Hydrochlo rothiazide 25 Mg Tablet, 25 Mg Oral 2016-08-27 00:00:00 No 25 Daily [facility] Vital Signs Vital Name Observation Time Observation Value Comments Source Systolic (mm Hg) 2017-12-06 17:00:00 [facility] Diastolic (mm Hg) 2017-12-06 17:00:00 [facility] Systolic (mm Hg) 2017-12-06 16:45:00 [facility] Diastolic (mm Hg) 2017-12-06 16:45:00 [facility] Systolic (mm Hg) 2017-12-06 16:30:00 [facility] Diastolic (mm Hg) 2017-12-06 16:30:00 [facility] Weight 2017-12-06 12:13:00 [facility] Height 2017-12-06 12:13:00 167.64 cm [facility] BMI Calculated 2017-12-06 12:13:00 [facility] Procedures Procedure Date / Time Performed Performing Clinician [facility] e Cardiac catheterisation, left heart [facility] Plan of Care Planned Activity Planned Date Details Comments Source Future Scheduled Test 2020-03-27 00:00:00 INFLUENZA VACCINE [code = INFLUENZA VACCINE] [facility] Future Scheduled Test 2007 00:00:00 65+ PNEUMOCOCCAL V ACCINE (1 of 2 - PCV13) [code = 65+ PNEUMOCOCCAL VACCINE (1 of 2 - PCV13)] [facility] Future Scheduled Test 1992-02-26 00:00:00 SHINGLES VACCINES (#1) [code = SHINGLES VACCINES (#1)] [facility] Encounters Start Date/Time End Date/Time En[facility] Department Encounter ID Source 2019-09-03 13:09:00 2019-09-26 23:59:[address] [facility] [id number] [facility] 2019-07-30 13:45:00 2019-08-26 23:59:[address] [facility] [id number] [facility] 2019-07-11 13:59:00 2019-07-26 23:59:[address] [facility] [id number] [facility] 2019-06-11 08:30:00 2019-06-26 23:59:[address] [facility] [id number] [facility] 2018-11-24 11:03:00 2018-11-24 19:05:00 Discharged Inpatient (obs) [address] [facility] [id number] [facility] 2018-05-22 14:56:00 2018-05-22 19:10:00 Departed Emergency Room [address] [facility] [id number] [facility] 2018-04-03 06:09:00 2018-04-03 09:40:00 Departed Emergency Room [address] [facility] [id number] [facility] 2017-12-06 11:46:00 2017-12-06 17:50:00 [facility] [id number] [facility] 2017-12-06 06:46:00 2017-12-06 12:50:00 Outpatient Adarsh Rivera [facility] [id number] 2017-12-06 06:46:00 2017-12-06 12:50:00 Outpatient Adarsh Rivera [facility] [id number] 2017-10-10 19:03:00 2017-10-11 14:15:00 Discharged Inpatient (obs) FELICIANO ZAPATA [facility] [id number] [facility] 2016-12-21 14:15:00 2016-12-21 14:15:00 [facility] [id number] [facility] Results Test Description Test Time Test Comments Results Result Comments Source Creatine Kinase 2018-11-24 18:20:00 Test Item Creatine Kinase (test code = 2157-6) 182 30-200 [facility] [id number] 18:20:00* Test Item Value Reference Range Interpretation Comments Creatine Kinase MB (test code = 15461-3) 1.70 0-5.0 [facility]rop[facility] [id number] 18:20:00* Test Item Value Reference Range Interpretation Comments Troponin I (test code = MMM0984) 0.001 0-0.300 [facility] [id number] 18:20:00* Test Item Value Reference Range Interpretation Comments Creatine Kinase (test code = 2157-6) 182 30-200 [facility] Kinase [id number] 18:20:00* Test Item Value Reference Range Interpretation Comments Creatine Kinase MB (test code = 14846-5) 1.70 0-5.0 [facility] [id number] 18:20:00* Test Item Value Reference Range Interpretation Comments Troponin I (test code = MJH5113) 0.001 0-0.300 [facility]Creat[facility] [id number] 18:20:00* Test Item Value Reference Range Interpretation Comments Creatine Kinase (test code = 2157-6) 182 30-200 [facility] Kinase [id number] 18:20:00* Test Item Value Reference Range Interpretation Comments Creatine Kinase MB (test code = 09566-3) 1.70 0-5.0 [place] [id number] 18:20:00* Test Item Value Reference Range Interpretation Comments Troponin I (test code = YUD2390) 0.001 0-0.300 [facility] [id number] 18:20:00* Test Item Value Reference Range Interpretation Comments Creatine Kinase (test code = 2157-6) 182 30-200 [facility] Kinase [id number] 18:20:00* Test Item Value Reference Range Interpretation Comments Creatine Kinase MB (test code = 33935-4) 1.70 0-5.0 [facility] [id number] 18:20:00* Test Item Value Reference Range Interpretation Comments Troponin I (test code = MUK2569) 0.001 0-0.300 [facility] ResourcesCHES SINGLE (PORTABLE)2018-11-24 11:32:00 [place] [address] Patient Name: CHARLIE JEONG MR #: [id number] : 1940 Age/Sex: 78/M Req #: [id number] Adm Physician: MICHELLE SMITH MD Ordered by: KLAUS GLEZ MD Report #: [id number] Location: [facility] Room/Bed: [facility]-2 Procedure: [id number] DX /CHEST SINGLE (PORTABLE) Exam Date: 11/24/18 Exam Ti me: 1125 REPORT STATUS: Signed E xamination: Single AP view of the chest. COMPARISON: None. INDICATION: Chest pain DISCUSSION: Lines/tubes: None. Lungs: The lungs are well inflated and clear. No pneumonia or pulmonary edema. Pleura: No pleural effusion or pneumothorax. Heart and mediastinum: The heart and the mediastinum are unremarkable. Bones and soft tissues: No acute bony abno rmalities. IMPRESSION: 1. No acute cardiopulmonary abnormalities. Signed by: Dr. Levi Lee M.D. on 11/24/2018 11:33 AM Dictated By: LEVI LEE MD [id number] COPY TO: KLAUS GLEZ MD Urine [id number] 11:28:00* Test Item Value Reference Range Interpretation Comments Urine WBC (test code = 5821-4) 0-5 0-5 [facility] [id number] 11:28:00* Test Item Value Reference Range Interpretation Comments Urine RBC (test code = 02154-6) 0-5 0-5 [facility] [id number] 11:28:00* Test Item Value Reference Range Interpretation Comments Urine Bacteria (test code = 35153-4) FEW NONE [facility] Resources[facility] Epithelial [id number] 11:28:00 * Test Item Value Reference Range Interpretation Comments Urine Epithelial Cells (test code = 68651-9) FEW NONE [facility] [id number] 11:28:00* Test Item Value Reference Range Interpretation Comments Urine WBC (test code = 5821-4) 0-5 0-5 [facility] [id number] 11:28:00* Test Item Value Reference Range Interpretation Comments Urine RBC (test code = 97304-4) 0-5 0-5 [facility] [id number] 11:28:00* Test Item Value Reference Range Interpretation Comments Urine Bacteria (test code = 26912-1) FEW NONE [facility] Epithelial [id number] 11:28:00 * Test Item Value Reference Range Interpretation Comments Urine Epithelial Cells (test code = 58466-2) FEW NONE [facility] [id number] 11:28:00* Test Item Value Reference Range Interpretation Comments Urine WBC (test code = 5821-4) 0-5 0-5 [facility] [id number] 11:28:00* Test Item Value Reference Range Interpretation Comments Urine RBC (test code = 92998-4) 0-5 0-5 [facility] [id number] 11:28:00* Test Item Value Reference Range Interpretation Comments Urine Bacteria (test code = 25937-0) FEW NONE [facility] Epithelial [id number] 11:28:00 * Test Item Value Reference Range Interpretation Comments Urine Epithelial Cells (test code = 58875-9) FEW NONE [facility] [id number] 11:28:00* Test Item Value Reference Range Interpretation Comments Urine WBC (test code = 5821-4) 0-5 0-5 [facility] [id number] 11:28:00* Test Item Value Reference Range Interpretation Comments Urine RBC (test code = 67827-6) 0-5 0-5 [facility] [id number] 11:28:00* Test Item Value Reference Range Interpretation Comments Urine Bacteria (test code = 14196-7) FEW NONE [facility] Epithelial [id number] 11:28:00 * Test Item Value Reference Range Interpretation Comments Urine Epithelial Cells (test code = 94180-8) FEW NONE [facility] ResourcesB-Type Natriuretic [id number] 11:25:00* Test Item Value Reference Range Interpretation Comments B-Type Natriuretic Peptide (test code = 56987-9) 24.4 0-100 [facility]B-Type Natriuretic [id number] 11:25:00* Test Item Value Reference Range Interpretation Comments B-Type Natriuretic Peptide (test code = 17036-2) 24.4 0-100 [facility]B-Type Natriuretic [id number] 11:25:00* Test Item Value Reference Range Interpretation Comments B-Type Natriuretic Peptide (test code = 92749-4) 24.4 0-100 [facility]B-Type Natriuretic [id number] 11:25:00* Test Item Value Reference Range Interpretation Comments B-Type Natriuretic Peptide (test code = 58392-9) 24.4 0-100 [facility] [id number] 11:24:00* Test Item Value Reference Range Interpretation Comments Sodium Level (test code = 2951-2) 141 136-145 [facility]assium Kojih4530-52-00 11:24:00* Test Item Value Reference Range Interpretation Comments Potassium Level (test code = 2823-3) 4.2 3.5-5.1 [facility] ResourcesChloride [id number] 11:24:00* Test Item Value Reference Range Interpretation Comments Chloride Level (test code = 2075-0) 109 98-107 H [facility] ResourcesCarbon Dioxide [id number] 11:24:00* Test Item Value Reference Range Interpretation Comments Carbon Dioxide Level (test code = 2028-9) 26 22-29 [facility] ResourcesAnion [id number] 11:24:00* Test Item Value Reference Range Interpretation Comments Anion Gap (test code = 82648-1) 10.2 8-16 [facility] Resources[facility] Urea [id number] 11:24:00* Test Item Value Reference Range Interpretation Comments Blood Urea Nitrogen (test code = 3094-0) 21 7-26 [facility] ResourcesCreatinine2019-03-31 11:24:00* Test Item Value Reference Range Interpretation Comments Creatinine (test code = 2160-0) 1.14 0.72-1.25 [facility] ResourcesBUN/Creatinine Hyjda3690-05-59 11:24:00* Test Item Value Reference Range Interpretation Comments BUN/Creatinine Ratio (test code = 3097-3) 18 6- [facility] ResourcesEstimat Glomerular Filtration Rate 2018-11-24 11:24:00* Test Item Value Reference Range Interpretation Comments Estimat Glomerular Filtration Rate (test code = 481762366) > 60 >60 Ranges were taken from the National Kidney Disease Education Program and the [facility] literature.Reference ranges:60 or greater: Ofondv92-95 ( for 3 consecutive months): Chronic kidney disease 15 or less: [facility] ResourcesGlucose Gdzzr6401-94-34 11:24:00* Test Item Value Reference Range Interpretation Comments Glucose Level (test code = LCQ4121) 121 74-118 H [facility] ResourcesCalcium Llrec1697-04-93 11:24:00* Test Item Value Reference Range Interpretation Comments Calcium Level (test code = 74322-6) 9.1 8.4-10.2 [facility] ResourcesMagnesium Dlnuz9491-90-46 11:24:00* Test Item Value Reference Range Interpretation Comments Magnesium Level (test code = 76729-7) 1.9 1.3-2.1 [facility] ResourcesTotal Lwdvyalqj0477-34-37 11:24:00* Test Item Value Reference Range Interpretation Comments Total Bilirubin (test code = 1975-2) 0.7 0.2-1.2 [facility] [place] [facility] ResourcesAspartate Amino Transf (AST/SGOT) 2018-11-24 11:24:00* Test Item Value Reference Range Interpretation Comments Aspartate Amino Transf (AST/SGOT) (test code = Aspartate Amino Transf (AST/SGOT)) 21 5-34 [facility] [place] [facility] ResourcesAlanine Aminotransferase (ALT/SGPT) 2018-11-24 11:24:00* Test Item Value Reference Range Interpretation Comments Alanine Aminotransferase (ALT/SGPT) (test code = 1742-6) 19 0-55 [facility] ResourcesTotal Qhozqlp2366-01-80 11:24:00* Test Item Value Reference Range Interpretation Comments Total Protein (test code = 2885-2) 6.5 6.5-8.1 [facility] [place] [facility] ResourcesAlbumin2019-03-31 11:24:00* Test Item Value Reference Range Interpretation Comments Albumin (test code = 1751-7) 3.1 3.5-5.0 L [facility] ResourcesGlobulin2019-03-31 11:24:00* Test Item Value Reference Range Interpretation Comments Globulin (test code = 02055-0) 3.4 2.3-3.5 [facility] [place] [facility] ResourcesAlbumin/Globulin Iieqh1555-14-82 11:24:00 * Test Item Value Reference Range Interpretation Comments Albumin/Globulin Ratio (test code = 1759-0) 0.9 0.8-2.0 [facility] ResourcesAlkaline Hotgkuibqdy3649-02-70 11:24:00* Test Item Value Reference Range Interpretation Comments Alkaline Phosphatase (test code = 6768-6) 86 40-150 [facility] Kadvo9904-00-75 11:24:00* Test Item Value Reference Range Interpretation Comments Sodium Level (test code = 2951-2) 141 136-145 [facility] ResourcesPotassium Cndwt7807-36-71 11:24:00* Test Item Value Reference Range Interpretation Comments Potassium Level (test code = 2823-3) 4.2 3.5-5.1 [facility] [place] [facility] ResourcesChloride Vgvwf6956-67-63 11:24:00* Test Item Value Reference Range Interpretation Comments Chloride Level (test code = 2075-0) 109 98-107 H [facility] [place] [facility] ResourcesCarbon Dioxide Dyohh8838-39-54 11:24:00* Test Item Value Reference Range Interpretation Comments Carbon Dioxide Level (test code = 2028-9) 26 -29 [facility] [place] [facility] ResourcesAnion Poh4620-67-24 11:24:00* Test Item Value Reference Range Interpretation Comments Anion Gap (test code = 02671-6) 10.2 8-16 [facility] ResourcesBlood Urea Xobtgaek4364-31-43 11:24:00* Test Item Value Reference Range Interpretation Comments Blood Urea Nitrogen (test code = 3094-0) 21 7-26 [facility] ResourcesCreatinine2019-03-31 11:24:00* Test Item Value Reference Range Interpretation Comments Creatinine (test code = 2160-0) 1.14 0.72-1.25 [facility] [place] [facility] ResourcesBUN/Creatinine Ojwbo8640-04-11 11:24:00* Test Item Value Reference Range Interpretation Comments BUN/Creatinine Ratio (test code = 3097-3) 18 - [facility] [place] [facility] ResourcesEstimat Glomerular Filtration Rate 2018-11-24 11:24:00* Test Item Value Reference Range Interpretation Comments Estimat Glomerular Filtration Rate (test code = 370673452) > 60 >60 Ranges were taken from the National Kidney Disease Education Program and the [facility] literature.Reference ranges:60 or greater: Ucazyv40-17 ( for 3 consecutive months): Chronic kidney disease 15 or less: Kidney failureJoint [facility] ResourcesGlucose Wegyv8224-40-49 11:24:00* Test Item Value Reference Range Interpretation Comments Glucose Level (test code = JPO0817) 121 74-118 H [facility] [place] [facility] ResourcesCalcium Lljsr9351-07-02 11:24:00* Test Item Value Reference Range Interpretation Comments Calcium Level (test code = 99579-2) 9.1 8.4-10.2 [facility] [place] [facility] ResourcesMagnesium Pwunq4786-66-46 11:24:00* Test Item Value Reference Range Interpretation Comments Magnesium Level (test code = 51318-8) 1.9 1.3-2.1 [facility] ResourcesTotal Jvhrmbdvi5880-57-40 11:24:00* Test Item Value Reference Range Interpretation Comments Total Bilirubin (test code = 1975-2) 0.7 0.2-1.2 [facility] [place] [facility] ResourcesAspartate Amino Transf (AST/SGOT) 2018-11-24 11:24:00* Test Item Value Reference Range Interpretation Comments Aspartate Amino Transf (AST/SGOT) (test code = Aspartate Amino Transf (AST/SGOT)) 21 5-34 [facility] [place] [facility] ResourcesAlanine Aminotransferase (ALT/SGPT) 2018-11-24 11:24:00* Test Item Value Reference Range Interpretation Comments Alanine Aminotransferase (ALT/SGPT) (test code = 1742-6) 19 0-55 [facility] ResourcesTotal Wpyggya1154-33-70 11:24:00* Test Item Value Reference Range Interpretation Comments Total Protein (test code = 2885-2) 6.5 6.5-8.1 [facility] [place] [facility] ResourcesAlbumin2019-03-31 11:24:00* Test Item Value Reference Range Interpretation Comments Albumin (test code = 1751-7) 3.1 3.5-5.0 L [facility] [place] [facility] ResourcesGlobulin2019-03-31 11:24:00* Test Item Value Reference Range Interpretation Comments Globulin (test code = 66493-2) 3.4 2.3-3.5 [facility] ResourcesAlbumin/Globulin Daegu2232-55-82 11:24:00 * Test Item Value Reference Range Interpretation Comments Albumin/Globulin Ratio (test code = 1759-0) 0.9 0.8-2.0 [facility] [place] [facility] ResourcesAlkaline Ivoogoxzjpc0399-03-83 11:24:00* Test Item Value Reference Range Interpretation Comments Alkaline Phosphatase (test code = 6768-6) 86 40-150 [facility] Jaukp4720-07-81 11:24:00* Test Item Value Reference Range Interpretation Comments Sodium Level (test code = 2951-2) 141 136-145 [facility] ResourcesPotassium Mpssn3004-62-07 11:24:00* Test Item Value Reference Range Interpretation Comments Potassium Level (test code = 2823-3) 4.2 3.5-5.1 [facility] [place] [facility] ResourcesChloride Fhhjj9313-91-66 11:24:00* Test Item Value Reference Range Interpretation Comments Chloride Level (test code = 2075-0) 109 98-107 H [facility] [place] [facility] ResourcesCarbon Dioxide Piqaf2723-60-60 11:24:00* Test Item Value Reference Range Interpretation Comments Carbon Dioxide Level (test code = 2028-9) 26 22-29 [facility] [place] [facility] ResourcesAnion Ndx0789-26-70 11:24:00* Test Item Value Reference Range Interpretation Comments Anion Gap (test code = 00966-8) 10.2 8-16 [facility] [place] [facility] ResourcesBlood Urea Eeftblmc2005-16-21 11:24:00* Test Item Value Reference Range Interpretation Comments Blood Urea Nitrogen (test code = 3094-0) 21 7-26 [facility] [place] [facility] ResourcesCreatinine2019-03-31 11:24:00* Test Item Value Reference Range Interpretation Comments Creatinine (test code = 2160-0) 1.14 0.72-1.25 [facility] [place] [facility] ResourcesBUN/Creatinine Gptis0002-76-04 11:24:00* Test Item Value Reference Range Interpretation Comments BUN/Creatinine Ratio (test code = 3097-3) 18 6- [facility] [place] [facility] ResourcesEstimat Glomerular Filtration Rate 2018-11-24 11:24:00* Test Item Value Reference Range Interpretation Comments Estimat Glomerular Filtration Rate (test code = 170215710) > 60 >60 Ranges were taken from the National Kidney Disease Education Program and the [place] [facility] Foundation literature.Reference ranges:60 or greater: Ihdfby09-20 ( for 3 consecutive months): Chronic kidney disease 15 or less: Kidney failureJoint [facility] [place] [facility] ResourcesGlucose Eqewp5904-71-48 11:24:00* Test Item Value Reference Range Interpretation Comments Glucose Level (test code = WSO2172) 121 74-118 H [facility] [place] [facility] ResourcesCalcium Byeog9999-29-16 11:24:00* Test Item Value Reference Range Interpretation Comments Calcium Level (test code = 14231-7) 9.1 8.4-10.2 [facility] [place] [facility] ResourcesMagnesium Xgere9259-23-55 11:24:00* Test Item Value Reference Range Interpretation Comments Magnesium Level (test code = 64342-8) 1.9 1.3-2.1 [facility] ResourcesTotal Kefbzyfay9677-40-82 11:24:00* Test Item Value Reference Range Interpretation Comments Total Bilirubin (test code = 1975-2) 0.7 0.2-1.2 [facility] [place] [facility] ResourcesAspartate Amino Transf (AST/SGOT) 2018-11-24 11:24:00* Test Item Value Reference Range Interpretation Comments Aspartate Amino Transf (AST/SGOT) (test code = Aspartate Amino Transf (AST/SGOT)) 21 5-34 [facility] [place] [facility] ResourcesAlanine Aminotransferase (ALT/SGPT) 2018-11-24 11:24:00* Test Item Value Reference Range Interpretation Comments Alanine Aminotransferase (ALT/SGPT) (test code = 1742-6) 19 0-55 [facility] [place] [facility] ResourcesTotal Ubsjqgv0537-97-32 11:24:00* Test Item Value Reference Range Interpretation Comments Total Protein (test code = 2885-2) 6.5 6.5-8.1 [facility] [place] [facility] ResourcesAlbumin2019-03-31 11:24:00* Test Item Value Reference Range Interpretation Comments Albumin (test code = 1751-7) 3.1 3.5-5.0 L [facility] [place] [facility] ResourcesGlobulin2019-03-31 11:24:00* Test Item Value Reference Range Interpretation Comments Globulin (test code = 27138-9) 3.4 2.3-3.5 [facility] [place] [facility] ResourcesAlbumin/Globulin Erdka6724-44-10 11:24:00 * Test Item Value Reference Range Interpretation Comments Albumin/Globulin Ratio (test code = 1759-0) 0.9 0.8-2.0 [facility] [place] [facility] ResourcesAlkaline Niruogduvax9305-77-93 11:24:00* Test Item Value Reference Range Interpretation Comments Alkaline Phosphatase (test code = 6768-6) 86 40-150 [facility] Bzsqn5420-78-68 11:24:00* Test Item Value Reference Range Interpretation Comments Sodium Level (test code = 2951-2) 141 136-145 [facility] ResourcesPotassium Prvmk7713-71-97 11:24:00* Test Item Value Reference Range Interpretation Comments Potassium Level (test code = 2823-3) 4.2 3.5-5.1 [facility] [place] [facility] ResourcesChloride Qoqgx0449-73-25 11:24:00* Test Item Value Reference Range Interpretation Comments Chloride Level (test code = 2075-0) 109 98-107 H [facility] [place] [facility] ResourcesCarbon Dioxide Ngcds3994-41-58 11:24:00* Test Item Value Reference Range Interpretation Comments Carbon Dioxide Level (test code = 2028-9) 26 22-29 [facility] [place] [facility] ResourcesAnion Syu0942-31-04 11:24:00* Test Item Value Reference Range Interpretation Comments Anion Gap (test code = 19374-2) 10.2 8-16 [facility] ResourcesBlood Urea Vzqlupbe0588-30-69 11:24:00* Test Item Value Reference Range Interpretation Comments Blood Urea Nitrogen (test code = 3094-0) 21 7-26 [facility] [place] [facility] ResourcesCreatinine2019-03-31 11:24:00* Test Item Value Reference Range Interpretation Comments Creatinine (test code = 2160-0) 1.14 0.72-1.25 [facility] [place] [facility] ResourcesBUN/Creatinine Vypxe2627-21-52 11:24:00* Test Item Value Reference Range Interpretation Comments BUN/Creatinine Ratio (test code = 3097-3) 18 6-25 [facility] [place] [facility] ResourcesEstimat Glomerular Filtration Rate 2018-11-24 11:24:00* Test Item Value Reference Range Interpretation Comments Estimat Glomerular Filtration Rate (test code = 291374187) > 60 >60 Ranges were taken from the National Kidney Disease Education Program and the [place] [facility] Foundation literature.Reference ranges:60 or greater: Lfbzkb29-62 ( for 3 consecutive months): Chronic kidney disease 15 or less: Kidney failureJoint [facility] [place] [facility] ResourcesGlucose Xjxzu8494-15-94 11:24:00* Test Item Value Reference Range Interpretation Comments Glucose Level (test code = YNP3053) 121 74-118 H [facility] [place] [facility] ResourcesCalcium Bhyjx5871-69-09 11:24:00* Test Item Value Reference Range Interpretation Comments Calcium Level (test code = 15555-0) 9.1 8.4-10.2 [facility] [place] [facility] ResourcesMagnesium Ylxjy7803-62-05 11:24:00* Test Item Value Reference Range Interpretation Comments Magnesium Level (test code = 47908-9) 1.9 1.3-2.1 [facility] ResourcesTotal Ptgfkvjol8524-88-95 11:24:00* Test Item Value Reference Range Interpretation Comments Total Bilirubin (test code = 1975-2) 0.7 0.2-1.2 [facility] [place] [facility] ResourcesAspartate Amino Transf (AST/SGOT) 2018-11-24 11:24:00* Test Item Value Reference Range Interpretation Comments Aspartate Amino Transf (AST/SGOT) (test code = Aspartate Amino Transf (AST/SGOT)) 21 5-34 [facility] [place] [facility] ResourcesAlanine Aminotransferase (ALT/SGPT) 2018-11-24 11:24:00* Test Item Value Reference Range Interpretation Comments Alanine Aminotransferase (ALT/SGPT) (test code = 1742-6) 19 0-55 [facility] Qwmnxym9507-19-04 11:24:00* Test Item Value Reference Range Interpretation Comments Total Protein (test code = 2885-2) 6.5 6.5-8.1 [facility] [place] [facility] ResourcesAlbumin2019-03-31 11:24:00* Test Item Value Reference Range Interpretation Comments Albumin (test code = 1751-7) 3.1 3.5-5.0 L [facility] [place] [facility] ResourcesGlobulin2019-03-31 11:24:00* Test Item Value Reference Range Interpretation Comments Globulin (test code = 50461-7) 3.4 2.3-3.5 [facility] [place] [facility] ResourcesAlbumin/Globulin Dmkos6263-15-54 11:24:00 * Test Item Value Reference Range Interpretation Comments Albumin/Globulin Ratio (test code = 1759-0) 0.9 0.8-2.0 [facility] [place] [facility] ResourcesAlkaline Cdlwqfesnbs3590-42-77 11:24:00* Test Item Value Reference Range Interpretation Comments Alkaline Phosphatase (test code = 6768-6) 86 40-150 [facility] [place] [facility] ResourcesActivated Partial Thromboplast Time 2018-11-24 11:22:00* Test Item Value Reference Range Interpretation Comments Activated Partial Thromboplast Time (test code = 57212-7) 26.9 23.8-35.5 [facility] [place] [facility] ResourcesActivated Partial Thromboplast Time 2018-11-24 11:22:00* Test Item Value Reference Range Interpretation Comments Activated Partial Thromboplast Time (test code = 98242-3) 26.9 23.8-35.5 [facility] [place] [facility] ResourcesActivated Partial Thromboplast Time 2018-11-24 11:22:00* Test Item Value Reference Range Interpretation Comments Activated Partial Thromboplast Time (test code = 47211-5) 26.9 23.8-35.5 [facility] [place] [facility] ResourcesActivated Partial Thromboplast Time 2018-11-24 11:22:00* Test Item Value Reference Range Interpretation Comments Activated Partial Thromboplast Time (test code = 06358-5) 26.9 23.8-35.5 [facility] [place] [facility] ResourcesProthrombin Xmki2968-97-48 11:20:00* Test Item Value Reference Range Interpretation Comments Prothrombin Time (test code = 5902-2) 12.9 11.9-14.5 [facility] [place] [facility] ResourcesProthromb Time International Ratio 2018-11-24 11:20:00* Test Item Value Reference Range Interpretation Comments Prothromb Time International Ratio (test code = 6301-6) 0.92 Oral Anticoagulant Therapy INR Values:1. Low Intensity Therapy 1.5 - 2.02 . Moderate Intensity Therapy 2.0 - 3.03. High Intensity Therapy(1) 2.5 - 3. 54. High Intensity Therapy(2) 3.0 - 4.05. Panic Value INR > 5.0 [facility] ResourcesProthrombin Elfl1798-91-72 11:20:00* Test Item Value Reference Range Interpretation Comments Prothrombin Time (test code = 5902-2) 12.9 11.9-14.5 [facility] [place] [facility] ResourcesProthromb Time International Ratio 2018-11-24 11:20:00* Test Item Value Reference Range Interpretation Comments Prothromb Time International Ratio (test code = 6301-6) 0.92 Oral Anticoagulant Therapy INR Values:1. Low Intensity Therapy 1.5 - 2.02 . Moderate Intensity Therapy 2.0 - 3.03. High Intensity Therapy(1) 2.5 - 3. 54. High Intensity Therapy(2) 3.0 - 4.05. Panic Value INR > 5.0 [facility] ResourcesProthrombin Wipa7695-47-47 11:20:00* Test Item Value Reference Range Interpretation Comments Prothrombin Time (test code = 5902-2) 12.9 11.9-14.5 [facility] [place] [facility] ResourcesProthromb Time International Ratio 2018-11-24 11:20:00* Test Item Value Reference Range Interpretation Comments Prothromb Time International Ratio (test code = 6301-6) 0.92 Oral Anticoagulant Therapy INR Values:1. Low Intensity Therapy 1.5 - 2.02 . Moderate Intensity Therapy 2.0 - 3.03. High Intensity Therapy(1) 2.5 - 3. 54. High Intensity Therapy(2) 3.0 - 4.05. Panic Value INR > 5.0 [facility] ResourcesProthrombin Vsfh1398-89-37 11:20:00* Test Item Value Reference Range Interpretation Comments Prothrombin Time (test code = 5902-2) 12.9 11.9-14.5 [facility] [place] [facility] ResourcesProthromb Time International Ratio 2018-11-24 11:20:00* Test Item Value Reference Range Interpretation Comments Prothromb Time International Ratio (test code = 6301-6) 0.92 Oral Anticoagulant Therapy INR Values:1. Low Intensity Therapy 1.5 - 2.02 . Moderate Intensity Therapy 2.0 - 3.03. High Intensity Therapy(1) 2.5 - 3. 54. High Intensity Therapy(2) 3.0 - 4.05. Panic Value INR > 5.0 [facility] ResourcesUrine Cugvi2786-68-68 11:19:00* Test Item Value Reference Range Interpretation Comments Urine Color (test code = 5778-6) YELLOW YELLOW [facility] ResourcesUrine Wmtogpk4444-56-21 11:19:00* Test Item Value Reference Range Interpretation Comments Urine Clarity (test code = 82769-9) HAZY CLEAR [facility] ResourcesUrine Specific Knoshuw5601-99-60 11:19:00 * Test Item Value Reference Range Interpretation Comments Urine Specific [place] (test code = 5811-5) 1.025 1.010-1.02 5 [facility] ResourcesUrine lB7770-51-48 11:19:00* Test Item Value Reference Range Interpretation Comments Urine pH (test code = 76035-5) 5 5-7 [facility] ResourcesUrine Leukocyte Mhujxnyp1103-28-23 11:19:00* Test Item Value Reference Range Interpretation Comments Urine Leukocyte Esterase (test code = 5799-2) NEGATIVE NEGATIVE [facility] Jvogmxf8217-58-47 11:19:00* Test Item Value Reference Range Interpretation Comments Urine Nitrite (test code = 63574-3) NEGATIVE NEGATIVE [facility] Mtwrtla0116-41-88 11:19:00* Test Item Value Reference Range Interpretation Comments Urine Protein (test code = 5804-0) NEGATIVE NEGATIVE [facility] ResourcesUrine Glucose (UA)2018-11-24 11:19:00* Test Item Value Reference Range Interpretation Comments Urine Glucose (UA) (test code = 2349-9) NEGATIVE NEGATIVE [facility] ResourcesUrine Yqmmfdg0030-36-53 11:19:00* Test Item Value Reference Range Interpretation Comments Urine Ketones (test code = 87014-0) NEGATIVE NEGATIVE [facility] Peatgvpvouga0432-86-52 11:19:00* Test Item Value Reference Range Interpretation Comments Urine Urobilinogen (test code = 00295-4) 0.2 0.2-1 [facility] ResourcesUrine Fooxxnrhe2438-62-99 11:19:00* Test Item Value Reference Range Interpretation Comments Urine Bilirubin (test code = 1978-6) NEGATIVE NEGATIVE [facility] ResourcesUrine Omtid6835-83-34 11:19:00* Test Item Value Reference Range Interpretation Comments Urine Blood (test code = 48394-9) NEGATIVE NEGATIVE [facility] ResourcesUrine Knqtm0627-94-41 11:19:00* Test Item Value Reference Range Interpretation Comments Urine Color (test code = 5778-6) YELLOW YELLOW [facility] ResourcesUrine Cenrpgs3526-91-07 11:19:00* Test Item Value Reference Range Interpretation Comments Urine Clarity (test code = 74295-3) HAZY CLEAR [facility] Specific Qmdjzpu5174-80-28 11:19:00 * Test Item Value Reference Range Interpretation Comments Urine Specific [place] (test code = 5811-5) 1.025 1.010-1.02 5 [facility] ResourcesUrine eM0352-30-02 11:19:00* Test Item Value Reference Range Interpretation Comments Urine pH (test code = 02281-5) 5 5-7 [facility] Leukocyte Oxsfnpoy6587-08-09 11:19:00* Test Item Value Reference Range Interpretation Comments Urine Leukocyte Esterase (test code = 5799-2) NEGATIVE NEGATIVE [facility] Gqrguod3509-41-17 11:19:00* Test Item Value Reference Range Interpretation Comments Urine Nitrite (test code = 12105-8) NEGATIVE NEGATIVE [facility] Qyssdku5576-21-78 11:19:00* Test Item Value Reference Range Interpretation Comments Urine Protein (test code = 5804-0) NEGATIVE NEGATIVE [facility] Glucose (UA)2018-11-24 11:19:00* Test Item Value Reference Range Interpretation Comments Urine Glucose (UA) (test code = 2349-9) NEGATIVE NEGATIVE [facility] Ssqvthv1550-78-91 11:19:00* Test Item Value Reference Range Interpretation Comments Urine Ketones (test code = 83767-2) NEGATIVE NEGATIVE [facility] Btzidbeplkts4887-05-78 11:19:00* Test Item Value Reference Range Interpretation Comments Urine Urobilinogen (test code = 65775-9) 0.2 0.2-1 [facility]Urine Nkppbycpq2133-26-23 11:19:00* Test Item Value Reference Range Interpretation Comments Urine Bilirubin (test code = 1978-6) NEGATIVE NEGATIVE [facility] ResourcesUrine Oyhwj7597-21-39 11:19:00* Test Item Value Reference Range Interpretation Comments Urine Blood (test code = 05489-7) NEGATIVE NEGATIVE [facility] ResourcesUrine Toeco4959-17-20 11:19:00* Test Item Value Reference Range Interpretation Comments Urine Color (test code = 5778-6) YELLOW YELLOW [facility] ResourcesUrine Ybadrax6032-62-55 11:19:00* Test Item Value Reference Range Interpretation Comments Urine Clarity (test code = 68244-3) HAZY CLEAR [facility] ResourcesU[facility] Specific Rkoqncw8965-06-63 11:19:00 * Test Item Value Reference Range Interpretation Comments Urine Specific [place] (test code = 5811-5) 1.025 1.010-1.02 5 [facility] ResourcesUrine pP0548-47-80 11:19:00* Test Item Value Reference Range Interpretation Comments Urine pH (test code = 66990-7) 5 5-7 [facility] Leukocyte Xvnahrhj0723-11-52 11:19:00* Test Item Value Reference Range Interpretation Comments Urine Leukocyte Esterase (test code = 5799-2) NEGATIVE NEGATIVE [facility] Chswtdj5956-26-87 11:19:00* Test Item Value Reference Range Interpretation Comments Urine Nitrite (test code = 05415-3) NEGATIVE NEGATIVE [facility] ResourcesUrine Rotbngj0895-89-86 11:19:00* Test Item Value Reference Range Interpretation Comments Urine Protein (test code = 5804-0) NEGATIVE NEGATIVE [facility]Urine Glucose (UA)2018-11-24 11:19:00* Test Item Value Reference Range Interpretation Comments Urine Glucose (UA) (test code = 2349-9) NEGATIVE NEGATIVE [facility] Hqjhnze4640-55-19 11:19:00* Test Item Value Reference Range Interpretation Comments Urine Ketones (test code = 87620-3) NEGATIVE NEGATIVE [facility] Lqerpwjtoczf4789-70-17 11:19:00* Test Item Value Reference Range Interpretation Comments Urine Urobilinogen (test code = 21314-2) 0.2 0.2-1 [facility] Ctgsfsisi4500-08-73 11:19:00* Test Item Value Reference Range Interpretation Comments Urine Bilirubin (test code = 1978-6) NEGATIVE NEGATIVE [facility] Pgdjq7541-79-20 11:19:00* Test Item Value Reference Range Interpretation Comments Urine Blood (test code = 57229-5) NEGATIVE NEGATIVE [facility] Jeurs9535-88-15 11:19:00* Test Item Value Reference Range Interpretation Comments Urine Color (test code = 5778-6) YELLOW YELLOW [facility] Vtkgoid3079-13-67 11:19:00* Test Item Value Reference Range Interpretation Comments Urine Clarity (test code = 90146-5) HAZY CLEAR [facility] Specific Vkzzwrn6268-93-11 11:19:00 * Test Item Value Reference Range Interpretation Comments Urine Specific [place] (test code = 5811-5) 1.025 1.010-1.02 5 [facility] gO6895-96-05 11:19:00* Test Item Value Reference Range Interpretation Comments Urine pH (test code = 78226-5) 5 5-7 [facility] Leukocyte Czsjgrbm3708-54-15 11:19:00* Test Item Value Reference Range Interpretation Comments Urine Leukocyte Esterase (test code = 5799-2) NEGATIVE NEGATIVE [facility] Mikojnr2208-79-85 11:19:00* Test Item Value Reference Range Interpretation Comments Urine Nitrite (test code = 95963-3) NEGATIVE NEGATIVE [facility] Oghyzwz1388-21-03 11:19:00* Test Item Value Reference Range Interpretation Comments Urine Protein (test code = 5804-0) NEGATIVE NEGATIVE [facility] ResourcesUrine Glucose (UA)2018-11-24 11:19:00* Test Item Value Reference Range Interpretation Comments Urine Glucose (UA) (test code = 2349-9) NEGATIVE NEGATIVE [facility] Euizoyl5700-91-78 11:19:00* Test Item Value Reference Range Interpretation Comments Urine Ketones (test code = 43566-3) NEGATIVE NEGATIVE [facility] Xpwlfzrigrdz3320-67-36 11:19:00* Test Item Value Reference Range Interpretation Comments Urine Urobilinogen (test code = 98718-7) 0.2 0.2-1 [facility] Gbogjrogl4742-03-61 11:19:00* Test Item Value Reference Range Interpretation Comments Urine Bilirubin (test code = 1978-6) NEGATIVE NEGATIVE [facility] ResourcesU[facility] Mnoqt9788-80-12 11:19:00* Test Item Value Reference Range Interpretation Comments Urine Blood (test code = 41159-2) NEGATIVE NEGATIVE [facility] ResourcesWhite Blood Kkffm2626-10-89 10:47:00* Test Item Value Reference Range Interpretation Comments White Blood Count (test code = 6690-2) 6.38 4.8-10.8 [facility] ResourcesRed Blood Xnuiy1295-75-26 10:47:00* Test Item Value Reference Range Interpretation Comments Red Blood Count (test code = 789-8) 3.56 4.3-5.7 L [facility] ResourcesHemoglobin2019-03-31 10:47:00* Test Item Value Reference Range Interpretation Comments Hemoglobin (test code = 23287-1) 11.0 14.0-18.0 L [facility] ResourcesHematocrit2019-03-31 10:47:00* Test Item Value Reference Range Interpretation Comments Hematocrit (test code = 4544-3) 34.7 38.2-49.6 L [facility] ResourcesMean Corpuscular Ikqvwc8445-91-76 10:47:00* Test Item Value Reference Range Interpretation Comments Mean Corpuscular Volume (test code = 787-2) 97.5 81-99 [facility] ResourcesMean Corpuscular Ramzfzxfyk5972-00-73 10:47:00* Test Item Value Reference Range Interpretation Comments Mean Corpuscular Hemoglobin (test code = 785-6) 30.9 28-32 [facility] ResourcesMean Corpuscular Hemoglobin Concent 2018-11-24 10:47:00* Test Item Value Reference Range Interpretation Comments Mean Corpuscular Hemoglobin Concent (test code = 786-4) 31.7 31-35 [facility] ResourcesRed Cell Distribution Nisae5680-08-45 10:47:00* Test Item Value Reference Range Interpretation Comments Red Cell Distribution Width (test code = 14447-1) 13.0 11.7 -14.4 [facility] ResourcesPlatelet Sokyk0694-44-64 10:47:00* Test Item Value Reference Range Interpretation Comments Platelet Count (test code = 777-3) 150 140-360 [facility] ResourcesNeutrophils (%) (Auto)2018-11-24 10:47:00 * Test Item Value Reference Range Interpretation Comments Neutrophils (%) (Auto) (test code = 00022-4) 64.7 38.7-80.0 [facility] ResourcesLymphocytes (%) (Auto)2018-11-24 10:47:00 * Test Item Value Reference Range Interpretation Comments Lymphocytes (%) (Auto) (test code = 736-9) 15.5 18.0-39.1 L [facility] ResourcesMonocytes (%) (Auto)2018-11-24 10:47:00* Test Item Value Reference Range Interpretation Comments Monocytes (%) (Auto) (test code = 5905-5) 10.7 4.4-11.3 [facility] ResourcesEosinophils (%) (Auto)2018-11-24 10:47:00 * Test Item Value Reference Range Interpretation Comments Eosinophils (%) (Auto) (test code = 713-8) 8.0 0.0-6.0 H [facility] ResourcesBasophils (%) (Auto)2018-11-24 10:47:00* Test Item Value Reference Range Interpretation Comments Basophils (%) (Auto) (test code = 706-2) 0.5 0.0-1.0 [facility] ResourcesIM GRANULOCYTES %2018-11-24 10:47:00* Test Item Value Reference Range Interpretation Comments IM GRANULOCYTES % (test code = IM GRANULOCYTES %) 0.6 0.0- 1.0 [facility] ResourcesNeutrophils # (Auto)2018-11-24 10:47:00* Test Item Value Reference Range Interpretation Comments Neutrophils # (Auto) (test code = 751-8) 4.1 2.1-6.9 [facility] ResourcesLymphocytes # (Auto)2018-11-24 10:47:00* Test Item Value Reference Range Interpretation Comments Lymphocytes # (Auto) (test code = 93470-9) 1.0 1.0-3.2 [facility] ResourcesMonocytes # (Auto)2018-11-24 10:47:00* Test Item Value Reference Range Interpretation Comments Monocytes # (Auto) (test code = 742-7) 0.7 0.2-0.8 [facility] ResourcesEosinophils # (Auto)2018-11-24 10:47:00* Test Item Value Reference Range Interpretation Comments Eosinophils # (Auto) (test code = 711-2) 0.5 0.0-0.4 H [facility] ResourcesBasophils # (Auto)2018-11-24 10:47:00* Test Item Value Reference Range Interpretation Comments Basophils # (Auto) (test code = 704-7) 0.0 0.0-0.1 [facility] ResourcesAbsolute Immature Granulocyte (auto 2018-11-24 10:47:00* Test Item Value Reference Range Interpretation Comments Absolute Immature Granulocyte (auto (elijah t code = Absolute Immature Granulocyte (auto) 0.04 0-0.1 [facility] ResourcesWhite Blood Dvqid8690-06-36 10:47:00* Test Item Value Reference Range Interpretation Comments White Blood Count (test code = 6690-2) 6.38 4.8-10.8 [facility] ResourcesRed Blood Rttlx7993-98-24 10:47:00* Test Item Value Reference Range Interpretation Comments Red Blood Count (test code = 789-8) 3.56 4.3-5.7 L [facility] ResourcesHemoglobin2019-03-31 10:47:00* Test Item Value Reference Range Interpretation Comments Hemoglobin (test code = 78489-0) 11.0 14.0-18.0 L [facility] ResourcesHematocrit2019-03-31 10:47:00* Test Item Value Reference Range Interpretation Comments Hematocrit (test code = 4544-3) 34.7 38.2-49.6 L [facility] ResourcesMean Corpuscular Vevxyu6172-82-18 10:47:00* Test Item Value Reference Range Interpretation Comments Mean Corpuscular Volume (test code = 787-2) 97.5 81-99 [facility] ResourcesMean Corpuscular Jgowzjqqqc5037-43-78 10:47:00* Test Item Value Reference Range Interpretation Comments Mean Corpuscular Hemoglobin (test code = 785-6) 30.9 28-32 [facility] Hem[facility] Concent 2018-11-24 10:47:00* Test Item Value Reference Range Interpretation Comments Mean Corpuscular Hemoglobin Concent (test code = 786-4) 31.7 31-35 [facility] ResourcesRed Cell Distribution Rnrfm3240-69-51 10:47:00* Test Item Value Reference Range Interpretation Comments Red Cell Distribution Width (test code = 50686-0) 13.0 11.7 -14.4 [facility] ResourcesPlatelet Unaeb1202-44-21 10:47:00* Test Item Value Reference Range Interpretation Comments Platelet Count (test code = 777-3) 150 140-360 [facility] ResourcesNeutrophils (%) (Auto)2018-11-24 10:47:00 * Test Item Value Reference Range Interpretation Comments Neutrophils (%) (Auto) (test code = 54117-5) 64.7 38.7-80.0 [facility] ResourcesLymphocytes (%) (Auto)2018-11-24 10:47:00 * Test Item Value Reference Range Interpretation Comments Lymphocytes (%) (Auto) (test code = 736-9) 15.5 18.0-39.1 L [facility] ResourcesMonocytes (%) (Auto)2018-11-24 10:47:00* Test Item Value Reference Range Interpretation Comments Monocytes (%) (Auto) (test code = 5905-5) 10.7 4.4-11.3 [facility] ResourcesEosinophils (%) (Auto)2018-11-24 10:47:00 * Test Item Value Reference Range Interpretation Comments Eosinophils (%) (Auto) (test code = 713-8) 8.0 0.0-6.0 H [facility] ResourcesBasophils (%) (Auto)2018-11-24 10:47:00* Test Item Value Reference Range Interpretation Comments Basophils (%) (Auto) (test code = 706-2) 0.5 0.0-1.0 [facility] ResourcesIM GRANULOCYTES %2018-11-24 10:47:00* Test Item Value Reference Range Interpretation Comments IM GRANULOCYTES % (test code = IM GRANULOCYTES %) 0.6 0.0- 1.0 [facility] ResourcesNeutrophils # (Auto)2018-11-24 10:47:00* Test Item Value Reference Range Interpretation Comments Neutrophils # (Auto) (test code = 751-8) 4.1 2.1-6.9 [facility] ResourcesLymphocytes # (Auto)2018-11-24 10:47:00* Test Item Value Reference Range Interpretation Comments Lymphocytes # (Auto) (test code = 57095-3) 1.0 1.0-3.2 [facility] ResourcesMonocytes # (Auto)2018-11-24 10:47:00* Test Item Value Reference Range Interpretation Comments Monocytes # (Auto) (test code = 742-7) 0.7 0.2-0.8 [facility] ResourcesEosinophils # (Auto)2018-11-24 10:47:00* Test Item Value Reference Range Interpretation Comments Eosinophils # (Auto) (test code = 711-2) 0.5 0.0-0.4 H [facility]Basophils # (Auto)2018-11-24 10:47:00* Test Item Value Reference Range Interpretation Comments Basophils # (Auto) (test code = 704-7) 0.0 0.0-0.1 [facility] ResourcesAbsolute Immature Granulocyte (auto 2018-11-24 10:47:00* Test Item Value Reference Range Interpretation Comments Absolute Immature Granulocyte (auto (elijah t code = Absolute Immature Granulocyte (auto) 0.04 0-0.1 [facility] ResourcesWhite Blood Ccdyp5274-48-01 10:47:00* Test Item Value Reference Range Interpretation Comments White Blood Count (test code = 6690-2) 6.38 4.8-10.8 [facility] ResourcesRed Blood Owmnd6243-74-14 10:47:00* Test Item Value Reference Range Interpretation Comments Red Blood Count (test code = 789-8) 3.56 4.3-5.7 L [facility] ResourcesHemoglobin2019-03-31 10:47:00* Test Item Value Reference Range Interpretation Comments Hemoglobin (test code = 11051-6) 11.0 14.0-18.0 L [facility] ResourcesHematocrit2019-03-31 10:47:00* Test Item Value Reference Range Interpretation Comments Hematocrit (test code = 4544-3) 34.7 38.2-49.6 L [facility] ResourcesMean Corpuscular Ezoyhv5295-68-74 10:47:00* Test Item Value Reference Range Interpretation Comments Mean Corpuscular Volume (test code = 787-2) 97.5 81-99 [facility] ResourcesMean Corpuscular Dcrizxfmqt9672-40-44 10:47:00* Test Item Value Reference Range Interpretation Comments Mean Corpuscular Hemoglobin (test code = 785-6) 30.9 28-32 [facility] ResourcesMean Corpuscular Hemoglobin Concent 2018-11-24 10:47:00* Test Item Value Reference Range Interpretation Comments Mean Corpuscular Hemoglobin Concent (test code = 786-4) 31.7 31-35 [facility] ResourcesRed Cell Distribution Rosyu0950-86-71 10:47:00* Test Item Value Reference Range Interpretation Comments Red Cell Distribution Width (test code = 46350-8) 13.0 11.7 -14.4 [facility] ResourcesPlatelet Gqtph5070-40-49 10:47:00* Test Item Value Reference Range Interpretation Comments Platelet Count (test code = 777-3) 150 140-360 [facility] ResourcesNeutrophils (%) (Auto)2018-11-24 10:47:00 * Test Item Value Reference Range Interpretation Comments Neutrophils (%) (Auto) (test code = 07396-1) 64.7 38.7-80.0 [facility] ResourcesLymphocytes (%) (Auto)2018-11-24 10:47:00 * Test Item Value Reference Range Interpretation Comments Lymphocytes (%) (Auto) (test code = 736-9) 15.5 18.0-39.1 L [facility] ResourcesMonocytes (%) (Auto)2018-11-24 10:47:00* Test Item Value Reference Range Interpretation Comments Monocytes (%) (Auto) (test code = 5905-5) 10.7 4.4-11.3 [facility] ResourcesEosinophils (%) (Auto)2018-11-24 10:47:00 * Test Item Value Reference Range Interpretation Comments Eosinophils (%) (Auto) (test code = 713-8) 8.0 0.0-6.0 H [facility] ResourcesBasophils (%) (Auto)2018-11-24 10:47:00* Test Item Value Reference Range Interpretation Comments Basophils (%) (Auto) (test code = 706-2) 0.5 0.0-1.0 [facility] ResourcesIM GRANULOCYTES %2018-11-24 10:47:00* Test Item Value Reference Range Interpretation Comments IM GRANULOCYTES % (test code = IM GRANULOCYTES %) 0.6 0.0- 1.0 [facility] ResourcesNeutrophils # (Auto)2018-11-24 10:47:00* Test Item Value Reference Range Interpretation Comments Neutrophils # (Auto) (test code = 751-8) 4.1 2.1-6.9 [facility] ResourcesLymphocytes # (Auto)2018-11-24 10:47:00* Test Item Value Reference Range Interpretation Comments Lymphocytes # (Auto) (test code = 67242-9) 1.0 1.0-3.2 [facility] ResourcesMonocytes # (Auto)2018-11-24 10:47:00* Test Item Value Reference Range Interpretation Comments Monocytes # (Auto) (test code = 742-7) 0.7 0.2-0.8 [facility] ResourcesEosinophils # (Auto)2018-11-24 10:47:00* Test Item Value Reference Range Interpretation Comments Eosinophils # (Auto) (test code = 711-2) 0.5 0.0-0.4 H [facility] ResourcesBasophils # (Auto)2018-11-24 10:47:00* Test Item Value Reference Range Interpretation Comments Basophils # (Auto) (test code = 704-7) 0.0 0.0-0.1 [facility] ResourcesAbsolute Immature Granulocyte (auto 2018-11-24 10:47:00* Test Item Value Reference Range Interpretation Comments Absolute Immature Granulocyte (auto (elijah t code = Absolute Immature Granulocyte (auto) 0.04 0-0.1 [facility] ResourcesWhite Blood Qezzd8463-06-74 10:47:00* Test Item Value Reference Range Interpretation Comments White Blood Count (test code = 6690-2) 6.38 4.8-10.8 [facility] ResourcesRed Blood Avzqs0414-92-52 10:47:00* Test Item Value Reference Range Interpretation Comments Red Blood Count (test code = 789-8) 3.56 4.3-5.7 L [facility] ResourcesHemoglobin2019-03-31 10:47:00* Test Item Value Reference Range Interpretation Comments Hemoglobin (test code = 90945-4) 11.0 14.0-18.0 L [facility] ResourcesHematocrit2019-03-31 10:47:00* Test Item Value Reference Range Interpretation Comments Hematocrit (test code = 4544-3) 34.7 38.2-49.6 L [facility] ResourcesMean Corpuscular Pgnctn0349-07-77 10:47:00* Test Item Value Reference Range Interpretation Comments Mean Corpuscular Volume (test code = 787-2) 97.5 81-99 [facility] ResourcesMean Corpuscular Oxyfbgnpho6056-96-62 10:47:00* Test Item Value Reference Range Interpretation Comments Mean Corpuscular Hemoglobin (test code = 785-6) 30.9 28-32 [facility] ResourcesMean Corpuscular Hemoglobin Concent 2018-11-24 10:47:00* Test Item Value Reference Range Interpretation Comments Mean Corpuscular Hemoglobin Concent (test code = 786-4) 31.7 31-35 [facility] ResourcesRed Cell Distribution Sulzn0899-25-56 10:47:00* Test Item Value Reference Range Interpretation Comments Red Cell Distribution Width (test code = 28278-9) 13.0 11.7 -14.4 [facility] ResourcesPlatelet Joymd7477-19-88 10:47:00* Test Item Value Reference Range Interpretation Comments Platelet Count (test code = 777-3) 150 140-360 [facility] ResourcesNeutrophils (%) (Auto)2018-11-24 10:47:00 * Test Item Value Reference Range Interpretation Comments Neutrophils (%) (Auto) (test code = 67296-9) 64.7 38.7-80.0 [facility] ResourcesLymphocytes (%) (Auto)2018-11-24 10:47:00 * Test Item Value Reference Range Interpretation Comments Lymphocytes (%) (Auto) (test code = 736-9) 15.5 18.0-39.1 L [facility] ResourcesMonocytes (%) (Auto)2018-11-24 10:47:00* Test Item Value Reference Range Interpretation Comments Monocytes (%) (Auto) (test code = 5905-5) 10.7 4.4-11.3 [facility] ResourcesEosinophils (%) (Auto)2018-11-24 10:47:00 * Test Item Value Reference Range Interpretation Comments Eosinophils (%) (Auto) (test code = 713-8) 8.0 0.0-6.0 H [facility] ResourcesBasophils (%) (Auto)2018-11-24 10:47:00* Test Item Value Reference Range Interpretation Comments Basophils (%) (Auto) (test code = 706-2) 0.5 0.0-1.0 [facility] ResourcesIM GRANULOCYTES %2018-11-24 10:47:00* Test Item Value Reference Range Interpretation Comments IM GRANULOCYTES % (test code = IM GRANULOCYTES %) 0.6 0.0- 1.0 [facility] ResourcesNeutrophils # (Auto)2018-11-24 10:47:00* Test Item Value Reference Range Interpretation Comments Neutrophils # (Auto) (test code = 751-8) 4.1 2.1-6.9 [facility] ResourcesLymphocytes # (Auto)2018-11-24 10:47:00* Test Item Value Reference Range Interpretation Comments Lymphocytes # (Auto) (test code = 74807-1) 1.0 1.0-3.2 [facility] ResourcesMonocytes # (Auto)2018-11-24 10:47:00* Test Item Value Reference Range Interpretation Comments Monocytes # (Auto) (test code = 742-7) 0.7 0.2-0.8 [facility] ResourcesEosinophils # (Auto)2018-11-24 10:47:00* Test Item Value Reference Range Interpretation Comments Eosinophils # (Auto) (test code = 711-2) 0.5 0.0-0.4 H [facility] ResourcesBasophils # (Auto)2018-11-24 10:47:00* Test Item Value Reference Range Interpretation Comments Basophils # (Auto) (test code = 704-7) 0.0 0.0-0.1 [facility] ResourcesAbsolute Immature Granulocyte (auto 2018-11-24 10:47:00* Test Item Value Reference Range Interpretation Comments Absolute Immature Granulocyte (auto (elijah t code = Absolute Immature Granulocyte (auto) 0.04 0-0.1 [facility] ResourcesFORESKIN2018-12-18 12:39:00 RUN DATE: 08/13/18 [facility] Lab PAGE 1 RUN TIME: 1240 Specimen Inqui ry RUN USER: INTERFACE PATIENT: CHARLIE JEONG ACCT #: V [id number] LOC: [facility] U #: [id number] AGE/SX: 78/M ROOM: RE08[facility]12[facility]18[facility] DR: Meet Mayorga MD : 44 BED: DIS: STATUS: [facility] [place]: SPEC #: [id number] RECD: 08/12/18 STATUS: AYO REPebbles #: [id number] PUNEET: 08/12/[address] [facility] [address]: Meet Mayorga MD ENTERED: 08/12/18 SP TYPE: FORESKIN OTHR DR: ORDERED: GROSS PROCEDURES: GROSS (08/13/18114) TISSUES: SKIN OF FORESKIN, NOS CLINICAL HISTORY COLLECTION DATE: PHIMOSIS, LEUKOPLAKIA OF PENIS FINAL DIAGNOSIS Foreskin, circumcision: SQUAMOUS EPITHELIUM WITH HYPERPLASIA, PARAKERATOSIS, AREAS OF EROSION AND XFZVTYKT-ML-NURTXO SUBEPITHELIAL CHRONIC INFLAMMATION (B ALANITIS) NEGATIVE FOR DYSPLASIA AND MALIGNANCY RRB/gm D 88 304 MACROSCOPIC The specimen is received in formalin, labeled with the patient's name, and identified as "foreskin". It consists of roughly recta ngular portion of dark ngo to pink-red skin measuring 6.0 X up to 2.3 cm in di ameter with a thickness of up to 0.4 cm. The surface focally has a slightly granular appearance but no discrete lesions are otherwise seen. Representativ e portions of tissue are submitted in a single cassette for histologic evaluat ion. GROSS PERFORMED AT [facility] [address] [place] [address] (p)[phone] CONTINUED ON NEXT PAGE RUN DATE: 08/13/18 [place] - Lab PAGE 2 RUN TIME: 1240 Specimen Inquiry RUN USER: INTERF KWASI SPEC # : [id number] PATIENT: CHARLIE JEONG #[id number] (Cont inued) MICROSCOPIC MICROSCOPIC PERFORMED AT [facility] All of the stains, including any controls performed, stain approp tanvir. [facility] [address] [facility], [place] [address] (P)[phone] PERFORMING SITE Processed at: [facility], [place] [address] [facility], [place] [address] Signed SIGNATURE ON FILE Barron Love 08/13/18 1239 END OF REPORT Sodium Fevue7990-30-20 17:15:00* Test Item Value Reference Range Interpretation Comments Sodium Level (test code = 2951-2) 141 136-145 [facility]Potassium Ckfeh7074-35-23 17:15:00* Test Item Value Reference Range Interpretation Comments Potassium Level (test code = 2823-3) 4.1 3.5-5.1 [facility] ResourcesChloride Jimox9085-10-95 17:15:00* Test Item Value Reference Range Interpretation Comments Chloride Level (test code = 2075-0) 106 98-107 [facility] ResourcesCarbon Dioxide Keqnm2103-19-70 17:15:00* Test Item Value Reference Range Interpretation Comments Carbon Dioxide Level (test code = 2028-9) 25 22-29 [facility] ResourcesAnion Xcg8966-48-76 17:15:00* Test Item Value Reference Range Interpretation Comments Anion Gap (test code = 38583-1) 14.1 8-16 [facility] ResourcesBlood Urea Axumttkp5107-03-08 17:15:00* Test Item Value Reference Range Interpretation Comments Blood Urea Nitrogen (test code = 3094-0) 15 - [facility] ResourcesCreatinine2018-09-26 17:15:00* Test Item Value Reference Range Interpretation Comments Creatinine (test code = 2160-0) 1.45 0.72-1.25 H [facility] ResourcesBUN/Creatinine Xxjhw3482-69-44 17:15:00* Test Item Value Reference Range Interpretation Comments BUN/Creatinine Ratio (test code = 3097-3) 10 02-18 [facility] ResourcesEstimat Glomerular Filtration Rate 2018-05-22 17:15:00* Test Item Value Reference Range Interpretation Comments Estimat Glomerular Filtration Rate (test code = 595352687) 47 >60 L Ranges were taken from the National Kidney Disease Education Program and the [facility] Foundation literature.Reference ranges:60 or greater: Mkfeef25-36 ( for 3 consecutive months): Chronic kidney disease 15 or less: Kidney failureJoint [facility] between [facility] ResourcesGlucose Uogre2476-94-08 17:15:00* Test Item Value Reference Range Interpretation Comments Glucose Level (test code = FFG5996) 98 74-118 [facility] ResourcesCalcium Qzbau9683-79-16 17:15:00* Test Item Value Reference Range Interpretation Comments Calcium Level (test code = 38396-8) 9.8 8.4-10.2 [facility] ResourcesUrine XPG0585-88-46 17:10:00* Test Item Value Reference Range Interpretation Comments Urine WBC (test code = 5821-4) NONE 0-5 [facility] ResourcesUrine OQP3873-65-93 17:10:00* Test Item Value Reference Range Interpretation Comments Urine RBC (test code = 77621-9) 21-50 0-5 H [facility] ResourcesUrine Csubofei7292-26-24 17:10:00* Test Item Value Reference Range Interpretation Comments Urine Bacteria (test code = 10534-3) MANY NONE H [facility] ResourcesUrine Epithelial Xamif1055-52-69 17:10:00 * Test Item Value Reference Range Interpretation Comments Urine Epithelial Cells (test code = 47435-9) NONE NONE [facility] ResourcesUrine Syiby0953-15-17 16:57:00* Test Item Value Reference Range Interpretation Comments Urine Color (test code = 5778-6) YELLOW YELLOW [facility] ResourcesUrine Nchotby2760-79-16 16:57:00* Test Item Value Reference Range Interpretation Comments Urine Clarity (test code = 37630-1) SL CLOUDY CLEAR H [facility] ResourcesUrine Specific Kjtemcl1256-56-81 16:57:00 * Test Item Value Reference Range Interpretation Comments Urine Specific [place] (test code = 5811-5) 1.020 1.010-1.02 5 [facility] ResourcesUrine kH9451-38-23 16:57:00* Test Item Value Reference Range Interpretation Comments Urine pH (test code = 66787-9) 6 5-7 [facility] ResourcesUrine Leukocyte Ydutokbu9381-25-40 16:57:00* Test Item Value Reference Range Interpretation Comments Urine Leukocyte Esterase (test code = 5799-2) TRACE NEGATIVE H [facility] ResourcesUrine Ecjoett7817-61-56 16:57:00* Test Item Value Reference Range Interpretation Comments Urine Nitrite (test code = 21979-8) NEGATIVE NEGATIVE [facility] ResourcesUrine Pxewldm0327-76-00 16:57:00* Test Item Value Reference Range Interpretation Comments Urine Protein (test code = 5804-0) 1+ NEGATIVE H [facility] ResourcesUrine Glucose (UA)2018-05-22 16:57:00* Test Item Value Reference Range Interpretation Comments Urine Glucose (UA) (test code = 2349-9) NEGATIVE NEGATIVE [facility] ResourcesUrine Uznulyc7976-49-64 16:57:00* Test Item Value Reference Range Interpretation Comments Urine Ketones (test code = 69182-4) NEGATIVE NEGATIVE [facility] ResourcesUrine Rotryajqobuh5647-36-40 16:57:00* Test Item Value Reference Range Interpretation Comments Urine Urobilinogen (test code = 64407-3) 0.2 0.2-1 [facility] ResourcesUrine Drkalripp8458-82-06 16:57:00* Test Item Value Reference Range Interpretation Comments Urine Bilirubin (test code = 1978-6) 1+ NEGATIVE H Confirmatory test currently unavailable. False positive results may occur.[facility] ResourcesUrine Pyuot3122-63-88 16:57:00* Test Item Value Reference Range Interpretation Comments Urine Blood (test code = 40052-0) 2+ NEGATIVE H [facility] ResourcesWhite Blood Kbbpz3933-65-58 16:55:00* Test Item Value Reference Range Interpretation Comments White Blood Count (test code = 6690-2) 8.07 4.8-10.8 [facility] ResourcesRed Blood Pjphi1034-83-73 16:55:00* Test Item Value Reference Range Interpretation Comments Red Blood Count (test code = 789-8) 4.04 4.3-5.7 L [facility] ResourcesHemoglobin2018-09-26 16:55:00* Test Item Value Reference Range Interpretation Comments Hemoglobin (test code = 19090-3) 12.3 14.0-18.0 L [facility] ResourcesHematocrit2018-09-26 16:55:00* Test Item Value Reference Range Interpretation Comments Hematocrit (test code = 4544-3) 38.0 38.2-49.6 L [facility] ResourcesMean Corpuscular Upwqpc3905-24-44 16:55:00* Test Item Value Reference Range Interpretation Comments Mean Corpuscular Volume (test code = 787-2) 94.1 81-99 [facility] ResourcesMean Corpuscular Hlmoprvywg1982-50-47 16:55:00* Test Item Value Reference Range Interpretation Comments Mean Corpuscular Hemoglobin (test code = 785-6) 30.4 28-32 [facility] ResourcesMean Corpuscular Hemoglobin Concent 2018-05-22 16:55:00* Test Item Value Reference Range Interpretation Comments Mean Corpuscular Hemoglobin Concent (test code = 786-4) 32.4 31-35 [facility] ResourcesRed Cell Distribution Gvssj5423-66-12 16:55:00* Test Item Value Reference Range Interpretation Comments Red Cell Distribution Width (test code = 27715-2) 13.2 11.7 -14.4 [facility] ResourcesPlatelet Plfuw9871-09-26 16:55:00* Test Item Value Reference Range Interpretation Comments Platelet Count (test code = 777-3) 145 140-360 [facility] ResourcesNeutrophils (%) (Auto)2018-05-22 16:55:00 * Test Item Value Reference Range Interpretation Comments Neutrophils (%) (Auto) (test code = 42887-2) 67.7 38.7-80.0 [facility] ResourcesLymphocytes (%) (Auto)2018-05-22 16:55:00 * Test Item Value Reference Range Interpretation Comments Lymphocytes (%) (Auto) (test code = 736-9) 14.9 18.0-39.1 L [facility] ResourcesMonocytes (%) (Auto)2018-05-22 16:55:00* Test Item Value Reference Range Interpretation Comments Monocytes (%) (Auto) (test code = 5905-5) 10.9 4.4-11.3 [facility] ResourcesEosinophils (%) (Auto)2018-05-22 16:55:00 * Test Item Value Reference Range Interpretation Comments Eosinophils (%) (Auto) (test code = 713-8) 6.1 0.0-6.0 H [facility] ResourcesBasophils (%) (Auto)2018-05-22 16:55:00* Test Item Value Reference Range Interpretation Comments Basophils (%) (Auto) (test code = 706-2) 0.2 0.0-1.0 [facility] ResourcesIM GRANULOCYTES %2018-05-22 16:55:00* Test Item Value Reference Range Interpretation Comments IM GRANULOCYTES % (test code = IM GRANULOCYTES %) 0.2 0.0- 1.0 [facility] ResourcesNeutrophils # (Auto)2018-05-22 16:55:00* Test Item Value Reference Range Interpretation Comments Neutrophils # (Auto) (test code = 751-8) 5.5 2.1-6.9 [facility] ResourcesLymphocytes # (Auto)2018-05-22 16:55:00* Test Item Value Reference Range Interpretation Comments Lymphocytes # (Auto) (test code = 23031-5) 1.2 1.0-3.2 [facility] ResourcesMonocytes # (Auto)2018-05-22 16:55:00* Test Item Value Reference Range Interpretation Comments Monocytes # (Auto) (test code = 742-7) 0.9 0.2-0.8 H [facility] ResourcesEosinophils # (Auto)2018-05-22 16:55:00* Test Item Value Reference Range Interpretation Comments Eosinophils # (Auto) (test code = 711-2) 0.5 0.0-0.4 H [facility] ResourcesBasophils # (Auto)2018-05-22 16:55:00* Test Item Value Reference Range Interpretation Comments Basophils # (Auto) (test code = 704-7) 0.0 0.0-0.1 [facility] ResourcesAbsolute Immature Granulocyte (auto 2018-05-22 16:55:00* Test Item Value Reference Range Interpretation Comments Absolute Immature Granulocyte (auto (elijah t code = Absolute Immature Granulocyte (auto) 0.02 0-0.1 [facility] ResourcesCT ABDOMEN/PELVIS VG0547-45-98 16:41:00 [place] [address] Patient Name: CHARLIE JEONG MR #: [id number] : 1940 Age/Sex: 78/M Req #: [id number] Adm Physician: Ordered by: DI RAMOS NP Report #: [id number] Location: ER Room/Bed: Procedure: [id number] CT/CT ABDOMEN/PELVIS WO Exam Date: 05/22/18 Exam Time: 1620 REPORT STATUS: S igned EXAM: CT of the abdomen and pelvis WITHOUT contrast HISTORY: Sto ne, flank pain, right COMPARISON: CT of the abdomen and pelvis August 27 7 TECHNIQUE: The abdomen and pelvis were scanned utilizing a multidetect or helical scanner. Coronal and sagittal reformats are available. PROTOCOL: Stone protocol IV CONTRAST: None, which limits s ensitivity and specificity of evaluation of the soft tissues and vascular stru ctures. ORAL CONTRAST: None, which limits sensitivity and specifi city of evaluation of the bowel. RADIATION DOSE: Total DLP: 795. 53 mGy*cm Estimated effective dose: (DLP x 0.015 x size factor) COMPLICATIONS: None FINDINGS: LOWER THORAX: No consolidations LIVER: No discrete abnormality. BILIARY: Metallic clips in the right upper quadrant of the abdomen are compatible with prior cholecys tectomy. SPLEEN: No masses PANCREAS: No masses. Mild diffuse parenchymal atrophy. ADRENALS: Stable 2 cm right adrenal glands round mass measuring l ess than 10 Hounsfield units, remains consistent with a lipid rich adenoma. Th e left adrenal gland is normal. KIDNEYS: * A punctate calcific densit y near the inferior pole of the right kidney. * A 4 mm calcific density withi n the proximal right ureter (axial image 91). * A 5 mm calcific density withi n the distal right ureter (axial image 135), diffuse fat stranding about the m id to distal right ureter. * Minimal right hydronephrosis and prominent perin ephric fat stranding. GI TRACT: No distention, wall thickening or evidence of obstruction. The colon and small bowel are diffusely decompressed, which pa rtially limits evaluation. A nonspecific oval radiopaque density within the s tomach. VESSELS: Scattered atherosclerotic vascular calcifications, includi ng the coronary arteries. PERITONEUM/RETROPERITONEUM: No free air or fluid LYMPH NODES: No lymphadenopathy PELVIS: The urinary bladder is decompressed, which limits evaluation. SOFT TISSUES: Unremarkable BONES: No aggressive osseous lesions. Moderate degenerative changes of the pubic symphysis. IM PRESSION: 1. A 5 mm stone within the distal right ureter and a 4 mm stone wit hin the proximal right ureter with associated minimal hydronephrosis. 2. Pu nctate stone near the inferior pole of the right kidney. 3. Stable right adre nal lipid rich adenoma. 4. Coronary atherosclerosis. Signed by: Dr. Vidal Yi D.O., M.M.M. on 05/22/2018 4:52 PM Dictated By: VIDAL YI DO E lectronically Signed By: VIDAL YI DO on 05/22/181651 Transcribed By: LORRI Garvey on 05/22/181651 COPY TO: DI RAMOS NP CT ABDOMEN/PELVIS WO 2018-04-03 07:34:00 [place] [address] Patient Name: CHARLIE JEONG MR #: [id number] : 1940 Age/Sex: 78/M Req #: [id number] Adm Physician: Ordered by: CHARLENE BARNARD MD Report #: [id number] Location: ER Room/Bed: Procedure: [id number] CT/CT ABDOMEN/PELVIS WO Exam Date: 04/03/18 Exam Time: [address] ATUS: Signed PROCEDURE: CT ABDOMEN AND PELVIS WITHOUT CONTRAST TECHNIQU E: The abdomen and pelvis were scanned utilizing a multidetector helical s canner from the diaphragm to the lesser trochanter without IV Contrast per protocol. Coronal and sagittal multiplanar reformations were obtained. COMPARISON: CT Abdomen/Pelvis without contrast 08/27/16. INDICATIONS: LEFT FLANK PAIN FINDINGS: ABSENCE OF INTRAVENOUS CONTRAST DECREASES SENSITIVITY FOR DETECTION OF FOCAL LESIONS AND VASCULAR PATHOLOGY. LO WER THORAX: Coronary atherosclerosis. HEPATOBILIARY: No focal hepatic lesi ons. No biliary ductal dilatation. Status post cholecystectomy. SPLEEN: No splenomegaly. PANCREAS: No focal masses or ductal dilatation. ADRENALS: Unchanged 2 cm right adrenal nodule, measuring less than 10 HU consistent wi th adenoma. Left adrenal gland is unremarkable. KIDNEYS/URETERS: Mild left hyd ronephrosis and hydroureter with perinephric and periureteric stranding and a small amount of fluid. There is a punctate 2 mm left distal ureteral/UVJ sto ne. No evidence of solid mass lesions. Simple cyst in the right kidney. PEL JULIO ORGANS/BLADDER: Unremarkable. PERITONEUM / RETROPERITONEUM: No free ai r or drainable fluid collection. LYMPH NODES: No lymphadenopathy. VESSEL S: Aortic atherosclerosis. GI TRACT: No distention or wall thickening. BONES AND SOFT TISSUES: No acute bony findings. IMPRESSION: A 2 mm l eft distal ureteral/UVJ stone with mild left hydronephrosis and hydroureter w ith surrounding inflammatory changes and small amount of free fluid. Dictated by: DEANNA SHAW M.D. on 04/03/2018 at 7:34 Electronically appr fermin by: DEANNA SHAW M.D. on 04/03/2018 at 7:34 Dictated By: MANSI SHAW MD 3 Transcribed By: SHALINI on 04/03/18733 COPY TO: CHARLENE BARNARD MD Urine Xuzif9558-76-66 07:14:00* Test Item Value Reference Range Interpretation Comments Urine Blood (test code = 37799-5) 1+ NEGATIVE H [facility] ResourcesUrine ZWI6224-79-89 07:14:00* Test Item Value Reference Range Interpretation Comments Urine WBC (test code = 5821-4) 0-5 0-5 [facility] ResourcesUrine GWL0070-89-04 07:14:00* Test Item Value Reference Range Interpretation Comments Urine RBC (test code = 38241-7) 0-5 0-5 [facility] ResourcesUrine Rfuggfyt1553-70-94 07:14:00* Test Item Value Reference Range Interpretation Comments Urine Bacteria (test code = 48439-7) FEW NONE [facility] ResourcesUrine Epithelial Hqmnf7184-09-62 07:14:00 * Test Item Value Reference Range Interpretation Comments Urine Epithelial Cells (test code = 74059-1) RARE NONE [facility] Hmmoy0521-17-92 07:10:00* Test Item Value Reference Range Interpretation Comments Sodium Level (test code = 2951-2) 138 136-145 [facility] ResourcesPotassium Emzna6019-78-64 07:10:00* Test Item Value Reference Range Interpretation Comments Potassium Level (test code = 2823-3) 3.9 3.5-5.1 [facility] ResourcesChloride Vimjd2144-57-34 07:10:00* Test Item Value Reference Range Interpretation Comments Chloride Level (test code = 2075-0) 104 98-107 [facility] ResourcesCarbon Dioxide Cdgsf3928-43-55 07:10:00* Test Item Value Reference Range Interpretation Comments Carbon Dioxide Level (test code = 2028-9) 24 22-29 [facility] ResourcesAnion Tds0759-19-54 07:10:00* Test Item Value Reference Range Interpretation Comments Anion Gap (test code = 93988-8) 13.9 8-16 [facility] ResourcesBlood Urea Aycannaj4002-02-59 07:10:00* Test Item Value Reference Range Interpretation Comments Blood Urea Nitrogen (test code = 3094-0) 23 7-26 [facility] ResourcesCreatinine2018-08-08 07:10:00* Test Item Value Reference Range Interpretation Comments Creatinine (test code = 2160-0) 1.58 0.72-1.25 H [facility] ResourcesBUN/Creatinine Tyfoq1493-58-99 07:10:00* Test Item Value Reference Range Interpretation Comments BUN/Creatinine Ratio (test code = 3097-3) 15 6-25 [facility] ResourcesEstimat Glomerular Filtration Rate 2018-04-03 07:10:00* Test Item Value Reference Range Interpretation Comments Estimat Glomerular Filtration Rate (test code = 91890-3) 43 >60 L Ranges were taken from the National Kidney Disease Education Program and the [facility] Foundation literature.Reference ranges:60 or greater: Xwstlx72-25 ( for 3 consecutive months): Chronic kidney disease 15 or less: Kidney failureJoint [facility] between [facility] ResourcesGlucose Puldk1052-34-63 07:10:00* Test Item Value Reference Range Interpretation Comments Glucose Level (test code = BYM7064) 115 74-118 [facility] ResourcesCalcium Iynel9816-35-51 07:10:00* Test Item Value Reference Range Interpretation Comments Calcium Level (test code = 92349-5) 9.1 8.4-10.2 [facility] ResourcesTotal Ybzoeyfkn9360-93-00 07:10:00* Test Item Value Reference Range Interpretation Comments Total Bilirubin (test code = 1975-2) 1.8 0.2-1.2 H [facility] ResourcesAspartate Amino Transf (AST/SGOT) 2018-04-03 07:10:00* Test Item Value Reference Range Interpretation Comments Aspartate Amino Transf (AST/SGOT) (test code = Aspartate Amino Transf (AST/SGOT)) 27 5-34 [facility] ResourcesAlanine Aminotransferase (ALT/SGPT) 2018-04-03 07:10:00* Test Item Value Reference Range Interpretation Comments Alanine Aminotransferase (ALT/SGPT) (test code = 1742-6) 23 0-55 [facility] Deyvske2101-75-25 07:10:00* Test Item Value Reference Range Interpretation Comments Total Protein (test code = 2885-2) 6.7 6.5-8.1 [facility] ResourcesAlbumin2018-08-08 07:10:00* Test Item Value Reference Range Interpretation Comments Albumin (test code = 1751-7) 3.3 3.5-5.0 L [facility] ResourcesGlobulin2018-08-08 07:10:00* Test Item Value Reference Range Interpretation Comments Globulin (test code = 08920-0) 3.4 2.3-3.5 [facility] ResourcesAlbumin/Globulin Nsfdr0714-72-70 07:10:00 * Test Item Value Reference Range Interpretation Comments Albumin/Globulin Ratio (test code = 1759-0) 1.0 0.8-2.0 [facility] ResourcesAlkaline Oaikqiillja1765-04-08 07:10:00* Test Item Value Reference Range Interpretation Comments Alkaline Phosphatase (test code = 6768-6) 75 40-150 [facility] ResourcesTotal Tmovsumcm3270-47-13 07:10:00* Test Item Value Reference Range Interpretation Comments Total Bilirubin (test code = 1975-2) 1.8 0.2-1.2 H [facility] ResourcesAspartate Amino Transf (AST/SGOT) 2018-04-03 07:10:00* Test Item Value Reference Range Interpretation Comments Aspartate Amino Transf (AST/SGOT) (test code = Aspartate Amino Transf (AST/SGOT)) 27 5-34 [facility] ResourcesAlanine Aminotransferase (ALT/SGPT) 2018-04-03 07:10:00* Test Item Value Reference Range Interpretation Comments Alanine Aminotransferase (ALT/SGPT) (test code = 1742-6) 23 0-55 [facility] Kgkqpfy0361-21-35 07:10:00* Test Item Value Reference Range Interpretation Comments Total Protein (test code = 2885-2) 6.7 6.5-8.1 [facility] ResourcesAlbumin2018-08-08 07:10:00* Test Item Value Reference Range Interpretation Comments Albumin (test code = 1751-7) 3.3 3.5-5.0 L [facility] ResourcesGlobulin2018-08-08 07:10:00* Test Item Value Reference Range Interpretation Comments Globulin (test code = 83271-4) 3.4 2.3-3.5 [facility] ResourcesAlbumin/Globulin Kgbku3457-44-16 07:10:00 * Test Item Value Reference Range Interpretation Comments Albumin/Globulin Ratio (test code = 1759-0) 1.0 0.8-2.0 [facility] ResourcesAlkaline Villjisdykm7069-40-67 07:10:00* Test Item Value Reference Range Interpretation Comments Alkaline Phosphatase (test code = 6768-6) 75 40-150 [facility] ResourcesWhite Blood Ebyna8742-53-66 06:59:00* Test Item Value Reference Range Interpretation Comments White Blood Count (test code = 6690-2) 8.76 4.8-10.8 [facility] ResourcesRed Blood Aheqe5244-96-56 06:59:00* Test Item Value Reference Range Interpretation Comments Red Blood Count (test code = 789-8) 4.14 4.3-5.7 L [facility] ResourcesHemoglobin2018-08-08 06:59:00* Test Item Value Reference Range Interpretation Comments Hemoglobin (test code = 05759-1) 12.4 14.0-18.0 L [facility] ResourcesHematocrit2018-08-08 06:59:00* Test Item Value Reference Range Interpretation Comments Hematocrit (test code = 4544-3) 38.0 38.2-49.6 L [facility] ResourcesMean Corpuscular Jbgwpp0666-50-38 06:59:00* Test Item Value Reference Range Interpretation Comments Mean Corpuscular Volume (test code = 787-2) 91.8 81-99 [facility] [facility] ResourcesMean Corpuscular Mshthkyhqs8908-10-94 06:59:00* Test Item Value Reference Range Interpretation Comments Mean Corpuscular Hemoglobin (test code = 785-6) 30.0 28-32 [facility] Concent 2018-04-03 06:59:00* Test Item Value Reference Range Interpretation Comments Mean Corpuscular Hemoglobin Concent (test code = 786-4) 32.6 31-35 [facility] ResourcesRed Cell Distribution Pgkfe4655-50-86 06:59:00* Test Item Value Reference Range Interpretation Comments Red Cell Distribution Width (test code = 70844-6) 13.2 11.7 -14.4 [facility] ResourcesPlatelet Vjdyv9632-87-50 06:59:00* Test Item Value Reference Range Interpretation Comments Platelet Count (test code = 777-3) 125 140-360 L [facility] ResourcesNeutrophils (%) (Auto)2018-04-03 06:59:00 * Test Item Value Reference Range Interpretation Comments Neutrophils (%) (Auto) (test code = 50163-5) 75.3 38.7-80.0 [facility] ResourcesLymphocytes (%) (Auto)2018-04-03 06:59:00 * Test Item Value Reference Range Interpretation Comments Lymphocytes (%) (Auto) (test code = 736-9) 10.4 18.0-39.1 L [facility] ResourcesMonocytes (%) (Auto)2018-04-03 06:59:00* Test Item Value Reference Range Interpretation Comments Monocytes (%) (Auto) (test code = 5905-5) 9.7 4.4-11.3 [facility] ResourcesEosinophils (%) (Auto)2018-04-03 06:59:00 * Test Item Value Reference Range Interpretation Comments Eosinophils (%) (Auto) (test code = 713-8) 4.1 0.0-6.0 [facility] ResourcesBasophils (%) (Auto)2018-04-03 06:59:00* Test Item Value Reference Range Interpretation Comments Basophils (%) (Auto) (test code = 706-2) 0.2 0.0-1.0 [facility] ResourcesIM GRANULOCYTES %2018-04-03 06:59:00* Test Item Value Reference Range Interpretation Comments IM GRANULOCYTES % (test code = IM GRANULOCYTES %) 0.3 0.0- 1.0 [facility] ResourcesNeutrophils # (Auto)2018-04-03 06:59:00* Test Item Value Reference Range Interpretation Comments Neutrophils # (Auto) (test code = 751-8) 6.6 2.1-6.9 [facility] ResourcesLymphocytes # (Auto)2018-04-03 06:59:00* Test Item Value Reference Range Interpretation Comments Lymphocytes # (Auto) (test code = 48402-9) 0.9 1.0-3.2 L [facility] ResourcesMonocytes # (Auto)2018-04-03 06:59:00* Test Item Value Reference Range Interpretation Comments Monocytes # (Auto) (test code = 742-7) 0.9 0.2-0.8 H [facility] ResourcesEosinophils # (Auto)2018-04-03 06:59:00* Test Item Value Reference Range Interpretation Comments Eosinophils # (Auto) (test code = 711-2) 0.4 0.0-0.4 [facility] ResourcesBasophils # (Auto)2018-04-03 06:59:00* Test Item Value Reference Range Interpretation Comments Basophils # (Auto) (test code = 704-7) 0.0 0.0-0.1 [facility] ResourcesAbsolute Immature Granulocyte (auto 2018-04-03 06:59:00* Test Item Value Reference Range Interpretation Comments Absolute Immature Granulocyte (auto (elijah t code = Absolute Immature Granulocyte (auto) 0.03 0-0.1 [facility] ResourcesUrine Hgfdy4950-31-07 06:57:00* Test Item Value Reference Range Interpretation Comments Urine Color (test code = 5778-6) YELLOW YELLOW [facility] ResourcesUrine Zyrhaog1196-21-02 06:57:00* Test Item Value Reference Range Interpretation Comments Urine Clarity (test code = 24534-3) CLEAR CLEAR [facility] ResourcesUrine Specific Rnmuzck1036-08-24 06:57:00 * Test Item Value Reference Range Interpretation Comments Urine Specific [place] (test code = 5811-5) 1.025 1.010-1.02 5 [facility] ResourcesUrine kX5785-33-78 06:57:00* Test Item Value Reference Range Interpretation Comments Urine pH (test code = 22781-6) 6 5-7 [facility] ResourcesUrine Leukocyte Idynjqts5224-00-43 06:57:00* Test Item Value Reference Range Interpretation Comments Urine Leukocyte Esterase (test code = 5799-2) NEGATIVE NEGATIVE [facility] ResourcesUrine Typophw2622-85-74 06:57:00* Test Item Value Reference Range Interpretation Comments Urine Nitrite (test code = 00685-9) NEGATIVE NEGATIVE [facility] ResourcesUrine Lnyaoxb3216-42-77 06:57:00* Test Item Value Reference Range Interpretation Comments Urine Protein (test code = 5804-0) NEGATIVE NEGATIVE [facility] ResourcesUrine Glucose (UA)2018-04-03 06:57:00* Test Item Value Reference Range Interpretation Comments Urine Glucose (UA) (test code = 2349-9) NEGATIVE NEGATIVE [facility] ResourcesUrine Szqqokm3527-88-65 06:57:00* Test Item Value Reference Range Interpretation Comments Urine Ketones (test code = 98211-8) NEGATIVE NEGATIVE [facility] ResourcesUrine Npigrmsmdgpe9436-76-91 06:57:00* Test Item Value Reference Range Interpretation Comments Urine Urobilinogen (test code = 20249-0) 0.2 0.2-1 [facility] ResourcesUrine Idnjccxvz6876-22-34 06:57:00* Test Item Value Reference Range Interpretation Comments Urine Bilirubin (test code = 1978-6) NEGATIVE NEGATIVE [facility] ResourcesBLOOD BANK AALJNNY6657-53-79 12:34:00 Negative (12/06/17 7:34 AM)[facility] CenterCARDIAC WFKDHSN0792-16-07 12:17:00* Test Item Value Reference Range Interpretation Comments CK MB Index (test code = CK MB Index) 0.8 1 <=2.5 [facility] CenterCARDIAC QXGVMLX9259-29-06 12:17:002.3MT[facility] HospitalCARDIAC UOPCVLR0531-32-00 12:17:00<0.010[facility] CenterCARDIAC WTPXNGA1986-27-53 12:17:72694BSMem[facility] CenterCHEM HKWMC8930-96-84 12:17:001.8[facility] CenterCHEM UOUID1477-64-44 12:17:0066[facility] CenterCHEM AUCLA1108-27-86 12:17:001.09[facility] CenterCHEM PANEL 2017-12-06 12:17:21281HXMemorial Hermann–[facility] Medical CenterCHEM SSTJN3617-39-43 12:17:0022[facility] CenterCHEM LEUYC4648-98-17 12:17:42003XXMem[facility] CenterCHEM BUPDY5452-17-50 12:17:009.[address] [place], [place] [address]CHEM BABQL5037-97-28 12:17:00 27[facility] CenterCHEM YDSNT7153-17-89 12:17:004.[address] [place] [address] CHEM GFONG8494-86-31 12:17:72416TKMem[facility] Hermann–[facility] Medical CenterCHEM UTLRI9740-05-39 12:17:[address] [place], [place] [address]XkvhlaSRDJOKIPXQ2630-49-23 12:17:001.[address] [place] [address] VjljbaPHOCHCXEKI8450-88-02 12:17:008.4[facility] CenterHEMATOLOGY 2017-12-06 12:17:000.[address] [place], [place] [address]IozshpLSQHTJUUNJ2398-37-90 12:17:004.[address] [place], [place] [address]TbryqsSKJTMVKPHM6564-86-91 12:17:[address] [place] [address] SEGIYFNZTJ9714-29-90 12:17:[address] [place], [place] [address]RvhjwxOFHIALMOBU2486-11-75 12:17:[address] [place], [place] [address]DktqfsTECAHNBRNT1011-69-44 12:17:000.[address] [place], [place] [address]KrtgfnVSFFQZYAMT8802-84-00 12:17:000.[address] [place], [place] [address]HEMATOLOGY 2017-12-06 12:17:45731UIMemorial Hermann–[facility] Medical CenterGiftgzIETZPTVGMJ3018-98-61 12:17:006[address] [place], [place] [address]XaxqekBRWLVABTYK2737-91-08 12:17:0033.[address] [place] [address] AOALEPFLJF6579-79-42 12:17:00* Test Item Value Reference Range Interpretation Comments MCH (test code = MCH) 30.4 pg 27.0-31.0 [facility] CenterXvgvihUUWEDNDLMH9232-40-97 12:17:[address] [place] [address] IHDKCGNFBY9435-48-96 12:17:[address] [place], [place] [address]PtpqjoRRCDUTBMVF0070-37-26 12:17:[address] [place], [place] [address]PjxechKBMUFRSOCL0730-52-42 12:17:[address] [place], [place] [address]GxtzkzOZSTVPRUOM7485-00-41 12:17:004.[address] [place], [place] [address]HEMATOLOGY 2017-12-06 12:17:006.8[facility] CenterUhdyhdNTTNAYPVZI8307-71-00 12:17:00* Test Item Value Reference Range Interpretation Comments PT (test code = PT) 13.1 s 12.0-14.7 [facility] CenterEwflpbKMQBMRGPIK5373-93-37 12:17:00* Test Item Value Reference Range Interpretation Comments PTT (test code = PTT) 31.7 s 22.9-35.8 [facility] CenterWtiakqMRLUQNKKHT8997-02-41 12:17:00* Test Item Value Reference Range Interpretation Comments INR (test code = INR) 0.99 1 0.85-1.17 [facility]2018-04-12 12:17:00* Test Item Value Reference Range Interpretation Comments CHD Risk (test code = CHD Risk) 2.45 1 4.00-7.30 [facility]2018-04-12 12:17:0044[facility] 2017-12-06 12:17:35479LQBaylor Scott & [facility]2018-04-12 12:17:72624SDB[facility] & [facility]2018-04-12 12:17:00* Test Item Value Reference Range Interpretation Comments VLDL (test code = VLDL) 22 1 [facility]2018-04-12 12:17:0042[facility] Creatine Kinase YW7316-94-88 07:29:00* Test Item Value Reference Range Interpretation Comments Creatine Kinase MB (test code = 69801-3) 1.80 0.00-5.00 [place] 89260018-02-15 07:29:00* Test Item Value Reference Range Interpretation Comments Troponin I (test code = 98387-7) -0.001 0-0.300 [facility] ResourcesCreatine Kinase OK2045-86-95 07:29:00* Test Item Value Reference Range Interpretation Comments Creatine Kinase MB (test code = 64972-1) 1.80 0.00-5.00 [facility] ResourcesTrMichael [place]ille [address]L7538-92-05 07:29:00* Test Item Value Reference Range Interpretation Comments Troponin I (test code = BDN3924) -0.001 0-0.300 [facility] ResourcesCreatine Kinase QZ1221-76-08 07:29:00* Test Item Value Reference Range Interpretation Comments Creatine Kinase MB (test code = 25489-5) 1.80 0.00-5.00 [place] 89260018-02-15 07:29:00* Test Item Value Reference Range Interpretation Comments Troponin I (test code = FPS0317) -0.001 0-0.300 [facility] ResourcesCreatine Idmpkr3525-22-03 07:17:00* Test Item Value Reference Range Interpretation Comments Creatine Kinase (test code = 2157-6) 101 30-200 [facility] ResourcesCreatine Ftifzs2337-68-64 07:17:00* Test Item Value Reference Range Interpretation Comments Creatine Kinase (test code = 2157-6) 101 30-200 [facility] ResourcesCreatine Aknfgk0718-15-13 07:17:00* Test Item Value Reference Range Interpretation Comments Creatine Kinase (test code = 2157-6) 101 30-200 [facility] ResourcesTriglycerides Lnbhv5760-58-19 07:08:00* Test Item Value Reference Range Interpretation Comments Triglycerides Level (test code = 2571-8) 98 0-149 [facility] ResourcesCholesterol Drizz9360-80-55 07:08:00* Test Item Value Reference Range Interpretation Comments Cholesterol Level (test code = 2093-3) 121 0-199 Less than 200 mg/dL Low Zrtv021 - 239 mg/dL Borderline Qeef574 m g/dl and greater High Risk [facility] ResourcesLDL Pehjaqbahty8832-89-66 07:08:00* Test Item Value Reference Range Interpretation Comments LDL Cholesterol (test code = 2089-1) 61 60-130 [facility] ResourcesHDL Nktubpkmckz6026-25-88 07:08:00* Test Item Value Reference Range Interpretation Comments HDL Cholesterol (test code = 2085-9) 40 40-60 [facility] ResourcesCholesterol/HDL Ketkd0459-84-49 07:08:00 * Test Item Value Reference Range Interpretation Comments Cholesterol/HDL Ratio (test code = 9830-1) 3.0 3.9-4.7 L [facility] ResourcesTriglycerides Fayua9689-95-09 07:08:00* Test Item Value Reference Range Interpretation Comments Triglycerides Level (test code = 2571-8) 98 0-149 [facility] ResourcesCholesterol Phdit1533-32-05 07:08:00* Test Item Value Reference Range Interpretation Comments Cholesterol Level (test code = 2093-3) 121 0-199 Less than 200 mg/dL Low Zeqs759 - 239 mg/dL Borderline Jsmp751 m g/dl and greater High Risk [facility] ResourcesLDL Aucayighafe5742-92-96 07:08:00* Test Item Value Reference Range Interpretation Comments LDL Cholesterol (test code = 2089-1) 61 60-130 [facility]L Zcnullixnav8960-82-75 07:08:00* Test Item Value Reference Range Interpretation Comments HDL Cholesterol (test code = 2085-9) 40 40-60 [facility] ResourcesCholesterol/HDL Psmgk9016-65-24 07:08:00 * Test Item Value Reference Range Interpretation Comments Cholesterol/HDL Ratio (test code = 9830-1) 3.0 3.9-4.7 L [facility] ResourcesTriglycerides Kcbzz0361-97-91 07:08:00* Test Item Value Reference Range Interpretation Comments Triglycerides Level (test code = 2571-8) 98 0-149 [facility] ResourcesCholesterol Yanxc2472-30-20 07:08:00* Test Item Value Reference Range Interpretation Comments Cholesterol Level (test code = 2093-3) 121 0-199 Less than 200 mg/dL Low Hzsz918 - 239 mg/dL Borderline Mpwc946 m g/dl and greater High Risk [facility] ResourcesLDL Gpcfgmviskv5718-37-42 07:08:00* Test Item Value Reference Range Interpretation Comments LDL Cholesterol (test code = 2089-1) 61 60-130 [facility]L Zuvdyzednzu9863-63-90 07:08:00* Test Item Value Reference Range Interpretation Comments HDL Cholesterol (test code = 2085-9) 40 40-60 [facility] ResourcesCholesterol/HDL Asuui3735-28-19 07:08:00 * Test Item Value Reference Range Interpretation Comments Cholesterol/HDL Ratio (test code = 9830-1) 3.0 3.9-4.7 L [facility] ResourcesInfluenza Virus Types A,B Antigen 2017-10-10 19:10:00* Test Item Value Reference Range Interpretation Comments Influenza Virus Types A,B Antigen (test code = 19752-1) NEGATIVE NEGATIVE [facility] ResourcesInfluenza Virus Types A,B Antigen 2017-10-10 19:10:00* Test Item Value Reference Range Interpretation Comments Influenza Virus Types A,B Antigen (test code = 72374-2) NEGATIVE NEGATIVE [facility] ResourcesInfluenza Virus Types A,B Antigen 2017-10-10 19:10:00* Test Item Value Reference Range Interpretation Comments Influenza Virus Types A,B Antigen (test code = 38236-5) NEGATIVE NEGATIVE [facility] ResourcesUrine WJY8848-74-64 18:53:00* Test Item Value Reference Range Interpretation Comments Urine WBC (test code = 5821-4) 0-5 0-5 [facility] ResourcesUrine YFR9271-27-55 18:53:00* Test Item Value Reference Range Interpretation Comments Urine RBC (test code = 11217-0) 0-5 0-5 [facility] ResourcesUrine Jxpwylnz5235-09-57 18:53:00* Test Item Value Reference Range Interpretation Comments Urine Bacteria (test code = 10511-7) NONE NONE [facility] ResourcesUrine Epithelial Bpueh9307-16-94 18:53:00 * Test Item Value Reference Range Interpretation Comments Urine Epithelial Cells (test code = 49380-2) NONE NONE [facility] ResourcesUrine Zvbrt9669-21-29 18:53:00* Test Item Value Reference Range Interpretation Comments Urine Mucus (test code = 8247-9) FEW RARE H [facility] ResourcesUrine Aqkby6101-85-49 18:53:00* Test Item Value Reference Range Interpretation Comments Urine Mucus (test code = 8247-9) FEW RARE H [facility] ResourcesUrine Ohwas2920-02-02 18:53:00* Test Item Value Reference Range Interpretation Comments Urine Mucus (test code = 8247-9) FEW RARE H [facility] ResourcesUrine Adrts4802-48-34 18:52:00* Test Item Value Reference Range Interpretation Comments Urine Color (test code = 5778-6) YELLOW YELLOW [facility] ResourcesUrine Qyogdmm7103-66-23 18:52:00* Test Item Value Reference Range Interpretation Comments Urine Clarity (test code = 41480-5) CLEAR CLEAR [facility] ResourcesUrine Specific Awdvxpp2621-89-18 18:52:00 * Test Item Value Reference Range Interpretation Comments Urine Specific [place] (test code = 5811-5) 1.020 1.010-1.02 5 [facility] ResourcesUrine hW4823-86-25 18:52:00* Test Item Value Reference Range Interpretation Comments Urine pH (test code = 22449-4) 5 5-7 [facility] ResourcesUrine Leukocyte Vgzsnhuc5830-11-91 18:52:00* Test Item Value Reference Range Interpretation Comments Urine Leukocyte Esterase (test code = 5799-2) NEGATIVE NEGATIVE [facility] ResourcesUrine Myouafe7474-59-30 18:52:00* Test Item Value Reference Range Interpretation Comments Urine Nitrite (test code = 23660-1) NEGATIVE NEGATIVE [facility] ResourcesUrine Oslueim2328-72-68 18:52:00* Test Item Value Reference Range Interpretation Comments Urine Protein (test code = 5804-0) NEGATIVE NEGATIVE [facility] ResourcesUrine Glucose (UA)2017-10-10 18:52:00* Test Item Value Reference Range Interpretation Comments Urine Glucose (UA) (test code = 2349-9) NEGATIVE NEGATIVE [facility] ResourcesUrine Tyxckcf3937-15-52 18:52:00* Test Item Value Reference Range Interpretation Comments Urine Ketones (test code = 53523-0) NEGATIVE NEGATIVE [facility] Vqfnwxzmgaai3733-26-24 18:52:00* Test Item Value Reference Range Interpretation Comments Urine Urobilinogen (test code = 78595-5) 0.2 0.2-1 [facility] ResourcesUrine Xzuiobfyf6574-43-74 18:52:00* Test Item Value Reference Range Interpretation Comments Urine Bilirubin (test code = 1978-6) NEGATIVE NEGATIVE [facility] ResourcesUrine Uuneu5388-57-29 18:52:00* Test Item Value Reference Range Interpretation Comments Urine Blood (test code = 19343-2) NEGATIVE NEGATIVE [facility] ResourcesB-Type Natriuretic Rgpdsqd3021-21-17 18:36:00* Test Item Value Reference Range Interpretation Comments B-Type Natriuretic Peptide (test code = 65714-5) 19.7 0-100 [facility] ResourcesB-Type Natriuretic Odntkge6758-48-58 18:36:00* Test Item Value Reference Range Interpretation Comments B-Type Natriuretic Peptide (test code = 47403-4) 19.7 0-100 [facility] ResourcesB-Type Natriuretic Hvyjzig9571-68-55 18:36:00* Test Item Value Reference Range Interpretation Comments B-Type Natriuretic Peptide (test code = 04666-4) 19.7 0-100 [facility] Txkmj8569-02-42 17:56:00* Test Item Value Reference Range Interpretation Comments Sodium Level (test code = 2951-2) 143 136-145 [facility] ResourcesPotassium Iidtr2101-53-05 17:56:00* Test Item Value Reference Range Interpretation Comments Potassium Level (test code = 2823-3) 4.9 3.5-5.1 [facility] ResourcesChloride Hkmth0199-04-03 17:56:00* Test Item Value Reference Range Interpretation Comments Chloride Level (test code = 2075-0) 109 98-107 H [facility] ResourcesCarbon Dioxide Lmnsm1576-05-54 17:56:00* Test Item Value Reference Range Interpretation Comments Carbon Dioxide Level (test code = 2028-9) 22 22-29 [facility] ResourcesAnion Voc1671-08-83 17:56:00* Test Item Value Reference Range Interpretation Comments Anion Gap (test code = 29104-7) 16.9 8-16 H [facility] ResourcesBlood Urea Uimauyqu9337-81-74 17:56:00* Test Item Value Reference Range Interpretation Comments Blood Urea Nitrogen (test code = 3094-0) 37 7-26 H [facility] ResourcesCreatinine2018-02-14 17:56:00* Test Item Value Reference Range Interpretation Comments Creatinine (test code = 2160-0) 1.65 0.72-1.25 H [facility] ResourcesBUN/Creatinine Mbifw3428-92-98 17:56:00* Test Item Value Reference Range Interpretation Comments BUN/Creatinine Ratio (test code = 3097-3) 22 6-25 [facility] ResourcesEstimat Glomerular Filtration Rate 2017-10-10 17:56:00* Test Item Value Reference Range Interpretation Comments Estimat Glomerular Filtration Rate (test code = 91236-8) 41 >60 L Ranges were taken from the National Kidney Disease Education Program and the [facility] [employer] literature.Reference ranges:60 or greater: Oibvbz45-08 ( for 3 consecutive months): Chronic kidney disease 15 or less: Kidney failureJoint venture between [facility] and [facility] ResourcesGlucose Noxtj2323-47-19 17:56:00* Test Item Value Reference Range Interpretation Comments Glucose Level (test code = EYO8394) 121 74-118 H [facility] ResourcesCalcium Cvund6749-78-36 17:56:00* Test Item Value Reference Range Interpretation Comments Calcium Level (test code = 23474-6) 8.5 8.4-10.2 [facility] ResourcesTotal Czeqrepem4698-95-07 17:56:00* Test Item Value Reference Range Interpretation Comments Total Bilirubin (test code = 1975-2) 0.5 0.2-1.2 [facility] ResourcesAspartate Amino Transf (AST/SGOT) 2017-10-10 17:56:00* Test Item Value Reference Range Interpretation Comments Aspartate Amino Transf (AST/SGOT) (test code = Aspartate Amino Transf (AST/SGOT)) 23 5-34 [facility] ResourcesAlanine Aminotransferase (ALT/SGPT) 2017-10-10 17:56:00* Test Item Value Reference Range Interpretation Comments Alanine Aminotransferase (ALT/SGPT) (test code = 1742-6) 23 0-55 [facility] ResourcesTotal Bunikmy3589-09-33 17:56:00* Test Item Value Reference Range Interpretation Comments Total Protein (test code = 2885-2) 6.7 6.5-8.1 [facility] ResourcesAlbumin2018-02-14 17:56:00* Test Item Value Reference Range Interpretation Comments Albumin (test code = 1751-7) 3.4 3.5-5.0 L [facility] ResourcesGlobulin2018-02-14 17:56:00* Test Item Value Reference Range Interpretation Comments Globulin (test code = 65645-5) 3.3 2.3-3.5 [facility] ResourcesAlbumin/Globulin Zctaz2882-98-98 17:56:00 * Test Item Value Reference Range Interpretation Comments Albumin/Globulin Ratio (test code = 1759-0) 1.0 0.8-2.0 [facility] ResourcesAlkaline Phjtofnbesn8017-16-34 17:56:00* Test Item Value Reference Range Interpretation Comments Alkaline Phosphatase (test code = 6768-6) 86 40-150 [facility] ResourcesProthrombin [id number] 17:51:00* Test Item Value Reference Range Interpretation Comments Prothrombin Time (test code = 5902-2) 12.9 11.9-14.5 [facility] ResourcesProthromb Time International Ratio 2017-10-10 17:51:00* Test Item Value Reference Range Interpretation Comments Prothromb Time International Ratio (test code = 6301-6) 1.05 Oral Anticoagulant Therapy INR Values:1. Low Intensity Therapy 1.5 - 2.02 . Moderate Intensity Therapy 2.0 - 3.03. High Intensity Therapy(1) 2.5 - 3. 54. High Intensity Therapy(2) 3.0 - 4.05. Panic Value INR > 5.0 [facility] ResourcesActivated Partial Thromboplast Time 2017-10-10 17:51:00* Test Item Value Reference Range Interpretation Comments Activated Partial Thromboplast Time (test code = 87392-8) 27.5 23.8-35.5 [facility] ResourcesProthrombin [id number] 17:51:00* Test Item Value Reference Range Interpretation Comments Prothrombin Time (test code = 5902-2) 12.9 11.9-14.5 [facility] ResourcesProthromb Time International Ratio 2017-10-10 17:51:00* Test Item Value Reference Range Interpretation Comments Prothromb Time International Ratio (test code = 6301-6) 1.05 Oral Anticoagulant Therapy INR Values:1. Low Intensity Therapy 1.5 - 2.02 . Moderate Intensity Therapy 2.0 - 3.03. High Intensity Therapy(1) 2.5 - 3. 54. High Intensity Therapy(2) 3.0 - 4.05. Panic Value INR > 5.0 [facility] ResourcesActivated Partial Thromboplast Time 2017-10-10 17:51:00* Test Item Value Reference Range Interpretation Comments Activated Partial Thromboplast Time (test code = 08099-4) 27.5 23.8-35.5 [facility] ResourcesProthrombin [id number] 17:51:00* Test Item Value Reference Range Interpretation Comments Prothrombin Time (test code = 5902-2) 12.9 11.9-14.5 [facility] ResourcesProthromb Time International Ratio 2017-10-10 17:51:00* Test Item Value Reference Range Interpretation Comments Prothromb Time International Ratio (test code = 6301-6) 1.05 Oral Anticoagulant Therapy INR Values:1. Low Intensity Therapy 1.5 - 2.02 . Moderate Intensity Therapy 2.0 - 3.03. High Intensity Therapy(1) 2.5 - 3. 54. High Intensity Therapy(2) 3.0 - 4.05. Panic Value INR > 5.0 [facility] ResourcesAct[facility] Partial Thromboplast Time 2017-10-10 17:51:00* Test Item Value Reference Range Interpretation Comments Activated Partial Thromboplast Time (test code = 72028-2) 27.5 23.8-35.5 [facility] ResourcesWhite Blood [id number] 17:42:00* Test Item Value Reference Range Interpretation Comments White Blood Count (test code = 6690-2) 10.31 4.8-10.8 [facility] ResourcesRed Blood [id number] 17:42:00* Test Item Value Reference Range Interpretation Comments Red Blood Count (test code = 789-8) 3.91 4.3-5.7 L [facility] ResourcesHemoglobin2018-02-14 17:42:00* Test Item Value Reference Range Interpretation Comments Hemoglobin (test code = 14478-9) 12.0 14.0-18.0 L [facility] ResourcesHematocrit2018-02-14 17:42:00* Test Item Value Reference Range Interpretation Comments Hematocrit (test code = 4544-3) 38.2 38.2-49.6 [facility] ResourcesMean Corpuscular [id number] 17:42:00* Test Item Value Reference Range Interpretation Comments Mean Corpuscular Volume (test code = 787-2) 97.7 81-99 [facility] ResourcesMean Corpuscular [id number] 17:42:00* Test Item Value Reference Range Interpretation Comments Mean Corpuscular Hemoglobin (test code = 785-6) 30.7 28-32 [facility] ResourcesMean Corpuscular Hemoglobin Concent 2017-10-10 17:42:00* Test Item Value Reference Range Interpretation Comments Mean Corpuscular Hemoglobin Concent (test code = 786-4) 31.4 31-35 [facility] ResourcesRed Cell Distribution [id number] 17:42:00* Test Item Value Reference Range Interpretation Comments Red Cell Distribution Width (test code = 54980-7) 13.2 11.7 -14.4 [facility] ResourcesPlatelet [id number] 17:42:00* Test Item Value Reference Range Interpretation Comments Platelet Count (test code = 777-3) 205 140-360 [facility] ResourcesNeutrophils (%) (Auto)2017-10-10 17:42:00 * Test Item Value Reference Range Interpretation Comments Neutrophils (%) (Auto) (test code = 62775-4) 69.0 38.7-80.0 [facility] ResourcesLymphocytes (%) (Auto)2017-10-10 17:42:00 * Test Item Value Reference Range Interpretation Comments Lymphocytes (%) (Auto) (test code = 736-9) 14.9 18.0-39.1 L [facility] ResourcesMonocytes (%) (Auto)2017-10-10 17:42:00* Test Item Value Reference Range Interpretation Comments Monocytes (%) (Auto) (test code = 5905-5) 8.8 4.4-11.3 [facility] ResourcesEosinophils (%) (Auto)2017-10-10 17:42:00 * Test Item Value Reference Range Interpretation Comments Eosinophils (%) (Auto) (test code = 713-8) 6.2 0.0-6.0 H [facility] ResourcesBasophils (%) (Auto)2017-10-10 17:42:00* Test Item Value Reference Range Interpretation Comments Basophils (%) (Auto) (test code = 706-2) 0.3 0.0-1.0 [facility] ResourcesIM GRANULOCYTES %2017-10-10 17:42:00* Test Item Value Reference Range Interpretation Comments IM GRANULOCYTES % (test code = IM GRANULOCYTES %) 0.8 0.0- 1.0 [facility] ResourcesNeutrophils # (Auto)2017-10-10 17:42:00* Test Item Value Reference Range Interpretation Comments Neutrophils # (Auto) (test code = 751-8) 7.1 2.1-6.9 H [facility] ResourcesLymphocytes # (Auto)2017-10-10 17:42:00* Test Item Value Reference Range Interpretation Comments Lymphocytes # (Auto) (test code = 94814-0) 1.5 1.0-3.2 [facility] ResourcesMonocytes # (Auto)2017-10-10 17:42:00* Test Item Value Reference Range Interpretation Comments Monocytes # (Auto) (test code = 742-7) 0.9 0.2-0.8 H [facility] ResourcesEosinophils # (Auto)2017-10-10 17:42:00* Test Item Value Reference Range Interpretation Comments Eosinophils # (Auto) (test code = 711-2) 0.6 0.0-0.4 H [facility] ResourcesBasophils # (Auto)2017-10-10 17:42:00* Test Item Value Reference Range Interpretation Comments Basophils # (Auto) (test code = 704-7) 0.0 0.0-0.1 [facility] ResourcesAbsolute Immature Granulocyte (auto 2017-10-10 17:42:00* Test Item Value Reference Range Interpretation Comments Absolute Immature Granulocyte (auto (elijah t code = Absolute Immature Granulocyte (auto) 0.08 0-0.1 [facility] [address] [address] Patient Name: CHARLIE JEONG MR #: [id number] : 1940 Age/Sex: 77/M Req #: [id number] Adm Physician: Ordered by: CHRISTI SANCHEZ TISSUE PACKER Report #: [id number] Location: ER Room/Bed: Procedure: [id number] DX/CHEST SINGLE (PORTABLE) Exam Date: 10/10/17 Exam Time: 1750 REPORT STAT US: Signed PROCEDURE: A single AP view of the chest. COMPARISON: [facility] t radiograph 06/26/2016 INDICATIONS: CHEST PAINS, SOB FINDINGS : Lines/tubes: None. Lungs: The lungs are well inflated and clear. The re is no evidence of pneumonia or pulmonary edema. Pleura: There is no pleural effusion or pneumothorax. Heart and mediastinum: The heart and t he mediastinum are unremarkable. Bones: No acute bony abnormality. IMPRESSION: No acute cardiopulmonary disease. Dictated by: Ephraim Kahn M.D. on 10/10/2017 at 18:24 Electronically approved by: Lucas Kahn M.D. on 10/10/2017 at 18:24 Dictated By: LUCAS KAHN MD 23 Transcribed By: Randy CHOI on 10/10/171823 COPY TO: CHRISTI SANCHEZ TISSUE PACKER
--- OUTSIDE RECORDS SUMMARY | 2020-01-22 06:38 | XMS REPORT | Continuity of Care Document ---
Author Author [facility] ExchangeCHARLIE [facility] Exchange Address Unknown Phone Unavailable Care Team Providers Care Vp Design Name Role Phone [employer] Unavailable Un available Problems No Data Provided for This Section Medications No Data Provided for This Section Allergies, Adverse Reactions, Alerts No Known Medication Allergies Immunizations No Data Provided for This Section Results No Data Provided for This Section Pathology Reports No Data Provided for This Section Diagnostic Reports No Data Provided for This Section Consultation Notes No Data Provided for This Section Discharge Summaries No Data Provided for This Section History and Physicals No Data Provided for This Section Vital Signs No Data Provided for This Section Encounters Location Location Details Encounter Type Encounter Number Reason For Visit Attending Provider ADM Date DC Date Status Source Outpatient [id number] AMMY PORTILLO 12/21/2016 Active FX Aligned Procedures No Data Provided for This Section Assessment and Plan No Data Provided for This Section Plan of Care No Data Provided for This Section Social History No Data Provided for This Section Family History No Data Provided for This Section Advance Directives No Data Provided for This Section Functional Status No Data Provided for This Section
--- OUTSIDE RECORDS SUMMARY | 2020-01-22 06:38 | XMS REPORT | Clinical Summary ---
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 0 Active Problems Problem Noted Date Hypertension 07/01/2018 Obstructive sleep apnea syndrome 07/01/2018 Overview: Overview: on CPAP Malignant neoplasm of prostate 11/24/2016 Cancer Staging: Clinical stage from 12/25: Stage IIB (T2b(7), N0, M0, PSA: Less than 10, Tierney 8-10) - Sign ed by Asya Rader on 07/01/2018 Heart disease 08/27/2014 Overview: Overview: History of chest pain, stress test norm al. cardiac catheterization: two stenotic vessels (very distal), diffcul t to stent Hypercholesterolemia 08/27/2014 Social History Date Tobacco Use Types Packs/Day [...] VACCINE 2007 (1 of 2 - PCV13) INFLUENZA VACCINE 03/27/2020 Results Not on fileafter 01/21/2019 Insurance Type Payer Benefit Subscriber ID Effective Phone Address Plan / Dates Group Medicare MEDICARE MEDICARE xxxxxxxxxx [id number] [place], PART A AND resent [place] B PPO AETNA AETNA PPO xxxxxxxxxx 2016- OPEN Present CHOICE [phone] Advance Directives For more information, please contact: [phone] Patient Patient Services Rep Explanation Type Date Recorded Advance Directives, Living Will and Medical Power of Metal Weigher
--- NOTE | 2020-01-22 06:58 | NUR ---
Report to SAMY Nguyen
[2020-01-22] MEDS ORDERED: HYDROCODONE/APAP 7.5MG-325MG 1 EA TAB PO ONE (07:45)
--- NOTE | 2020-01-22 08:00 | Emergency Department Note ---
History of Present Illnes History of Present Illness Chief Complaint: Extremity Trauma/Pain History of Present Illness This is a 79 year old male c/o right leg/foot pain that started yesterday after he woke up. Patient denies any trauma to site. States he carried on about his day and pain lasted all day. Patient states he took tylenol yesterday and pain was resciding but felt pain again today after attempting to walk on it. Patient using a walking shoe from home. Historian: Patient Arrival Mode: Car Make Ready Worker Required: No Onset (how long ago): day(s) (1) Location: RIGHT FOOT Quality: PAIN Radiation: non-radiation Severity: moderate Onset quality: sudden Duration (how long): day(s) (1) Timing of current episode: constant, other (WORSE WITH WALKING) Progression: unchanged Chronicity: new Context: recent illness Relieving factors: rest Exacerbating factors: movement Associated symptoms: denies other symptoms Treatments prior to arrival: none Past Medical/Family History Physician Review I have reviewed the patient's past medical and family history. Any updates have been documented here. Past Medical History Recent Fever: No Clinical Suspicion of Infectio: No New/Unexplained Change in Ment: No Past Medical History: Hypertension, Diabetes, Cancer, Kidney Stones, Hyperlipedemia Other Medical History: MOTHER-ANGINA, FATHER WITH STROKE. PROSTATE CANCER ANGINA legally blind Past Surgical History: Hernia Repair Other Surgery: UMBILICAL HERNIA SURGERY CARDIAC CATHERIZATION 1 YEAR AGO-DR. SEYMOUR PROSTATE RADIATION RETINAL SX throat sx circumcision Social History Smoking Cessation: Never Smoker Counseling Performed: No Alcohol Use: None Any Illegal Drug Use: No TB Exposure/Symptoms: No Physically hurt or threatened: No Family History Family history of heart diseas: Yes Other Last Tetanus: UTD Any Pre-Existing Lines (PICC,: No Is patient up to date on immun: No Last Flu: unk Last Pneumovax: unk Review of Systems Review of Systems Constitutional: no symptoms EENTM: no symptoms Cardiovascular: no symptoms Respiratory: no symptoms Gastrointestinal: no symptoms Genitourinary: no symptoms Musculoskeletal: as per HPI Neurological: no symptoms Psychological: no symptoms Endocrine: no symptoms Hematological/Lymphatic: no symptoms Review of other systems All other systems reviewed and negative. Physical Exam Related Data Allergies: Coded Allergies: No Known Drug Allergies (Unverified Allergy, Unknown, 05/22/18) Triage Vital Signs Vital Signs Date Time Temp Pulse Resp B/P (MAP) Pulse Ox O2 Delivery O2 Flow Rate FiO2 01/22/20 06:39 98.6 90 22 136/69 99 Vital signs reviewed: Yes Physical Exam CONSTITUTIONAL Constitutional: well-developed, well-nourished HENT HENT: normocephalic, atraumatic, oropharynx clear/moist, nose normal HENT L/R: left ext ear normal, right ext ear normal EYES Eyes: PERRL, conjunctivae normal NECK Neck: ROM normal PULMONARY Pulmonary: effort normal, breath sounds normal CARDIOVASCULAR Cardiovascular: regular rhythm, heart sounds normal, capillary refill normal, normal rate GASTROINTESTINAL Abdominal: soft, nontender, bowel sounds normal GENITOURINARY Genitourinary: exam deferred SKIN Skin: warm, dry MUSCULOSKELETAL Musculoskeletal: tenderness (MILD TENDERNESS RIGHT LATERAL FOOT OVER PROX 5TH MT, MOD TENDERNESS OVER PLANTAR FASCIA ESPEC NEAR CALCANEUS) NEUROLOGICAL Neurological: alert, oriented x 3, no gross motor or sensory deficits PSYCHOLOGICAL Psychological: mood/affect normal, judgement normal Results Laboratory Lab results reviewed: No Imaging Imaging results reviewed: Yes Impressions EXAMINATION: FOOT RIGHT COMPLETE INDICATION: Foot pain COMPARISON: None FINDINGS: No acute fracture or dislocation. Alignment is anatomic. Soft tissues appear unremarkable. Prominent plantar calcaneal spur. IMPRESSION: No acute osseous injury. Prominent plantar calcaneal spur. Signed by: Jaime Tang MD on 01/22/2020 9:45 AM Diagnostics Tests Diagnostic test(s) reviewed: Yes Critical Care Time Subsequent provider I assumed direction of critical care for this patient from another provider of my specialty. Assessment & Plan Reassessment Reassessment XRAY RIGHT FOOT R/O STRESS FX, PAIN CONTROL - IF XRAYS NEG DC HOME, WEAR BOOT DIRECTED, F/U WITH PODIATRY DR CARLIN Assessment & Plan Final Impression: (1) Plantar fasciitis of right foot (2) Foot pain Assessment & Plan I SPOKE WITH DR Cece OCONNELL, PT TO GO TO HIS OFFICE NOW (NO CURRENT BLEEDING - RESOLVED WITH AFRIN) Depart Disposition: HOME, SELF-CARE Last Vital Signs Date Time Temp Pulse Resp B/P (MAP) Pulse Ox O2 Delivery O2 Flow Rate FiO2 01/22/20 06:48 82 20 121/55 97 01/22/20 06:39 98.6 Home Meds Active Scripts Tamsulosin Hcl* (FLOMAX*) 0.4 Mg Cap, 0.4 MG PO DAILY for 30 Days, #30 CAP 0 Refills Prov:OSEI HOWARD 04/03/18 Reported Medications Potassium Chloride (POTASSIUM CHLORIDE) 10 Meq Tab.er.prt, PO, TAB 11/24/18 Isosorbide Mononitrate (ISOSORBIDE MONONITRATE ER) 30 Mg Tab.er.24h, 30 MG PO DAILY, #30 TAB 11/24/18 Aspirin (ASPIR 81) 81 Mg Tablet.dr, 81 MG PO DAILY 08/27/16 Rosuvastatin Calcium (CRESTOR) 10 Mg Tab, 10 MG PO DAILY THERAPEUTICALLY SUBSTITUTED WITH SIMVASTATIN 40MG 08/27/16 Metoprolol Tartrate (METOPROLOL TARTRATE) 25 Mg Tablet, 25 MG PO DAILY, TAB 08/27/16 Medications in the ED Acetaminophen/ Hydrocodone Bitart 1 ea NOW ONCE PO ; Start 01/22/20 at 07:45; Stop 01/22/20 at 07:46; Status DC KLAUS GLEZ MD January 22, 2020 08:00
--- NOTE | 2020-01-22 09:48 | Diagnostic Imaging Report ---
EXAMINATION: FOOT RIGHT COMPLETE INDICATION: Foot pain COMPARISON: None FINDINGS: No acute fracture or dislocation. Alignment is anatomic. Soft tissues appear unremarkable. Prominent plantar calcaneal spur. IMPRESSION: No acute osseous injury. Prominent plantar calcaneal spur. Signed by: Jaime Tang MD on 01/22/2020 9:45 AM
== END 2020-01-22 10:15 | disposition home or self-care (01) ==
LOC: ER 06:35
DX: M79.671 Pain in right foot (principal); M72.2 Plantar fascial fibromatosis; I10 Essential (primary) hypertension; E11.9 Type 2 diabetes mellitus without complications; E78.5 Hyperlipidemia, unspecified; Z85.46 Personal history of malignant neoplasm of prostate
CPT/HCPCS: 99283